=== PATIENT | male | born 1955 | race Hispanic/Latino ===

== ENCOUNTER 2020-04-15 06:58 | Emergency (ER) | payer MEDICARE ==
[2020-04-15 07:33] LABS: BASOPHILS % (AUTO) 0.4 % (0.0-5.0); EOSINOPHILS % (AUTO) 2.3 % (0.0-8.0); HEMATOCRIT 52.4 % (42-54); LYMPHOCYTES % (AUTO) 18.8 % (21.0-51.0); MEAN CORPUSCULAR HGB CONC 34.7 g/dL (32.0-36.0); MEAN CORPUSCULAR VOLUME 97.8 fL (79-99); MONOCYTES % (AUTO) 6.7 % (3.0-13.0); NEUTROPHILS % (AUTO) 71.5 % (40.0-77.0); PLATELET COUNT (AUTO) 174 K/uL (130-400); RED BLOOD CELL COUNT(AUTO) 5.36 MIL/uL (4.50-6.20); RED CELL DISTRIBUTION WIDTH 11.8 % (11.0-15.5); WHITE BLOOD COUNT (AUTO) 10.1 K/uL (4.8-10.8)
[2020-04-15 07:36] LABS: POTASSIUM 4.4 mmol/L (3.5-5.1)
[2020-04-15 07:42] LABS: ALBUMIN 4.5 g/dL (3.5-5.0); BILIRUBIN,TOTAL 0.9 mg/dL (0.2-1.0)
[2020-04-15] MEDS ORDERED: ORPHENADRINE CITRATE 30 MG/ML ML ONE (07:42)
[2020-04-15] MEDS ORDERED: KETOROLAC TROMETHAMINE 30MG/ML ONE (07:42)
[2020-04-15 07:58] LABS: APPEARANCE,URINE Clear (CLEAR); BILIRUBIN,URINE Negative (NEGATIVE); COLOR,URINE Yellow (YELLOW); GLUCOSE, URINE (UA) Negative (NEGATIVE); KETONES,URINE Negative (NEGATIVE); LEUKOCYTE ESTERASE ,URINE Negative (NEGATIVE); NITRATE,URINE Negative (NEGATIVE); OCCULT BLOOD,URINE Negative (NEGATIVE); PH,URINE 5.5 (5.0-8.0); PROTEIN,URINE Negative (NEGATIVE)
[2020-04-15] MEDS ORDERED: DEXAMETHASONE SOD PHOSPHATE 4 MG/ML 1ML VIAL ONE (10:42)
== END 2020-04-15 11:12 | disposition home or self-care (01) ==
LOC: EDH 06:58
DX: M54.32 Sciatica, left side (principal); I10 Essential (primary) hypertension
CPT/HCPCS: 36415; 72100; 80053; 81003; 85025; 96374; 96375; 99284; J1100; J1885; J2360

== ENCOUNTER 2023-01-15 19:31 | Inpatient (IN) | payer OTHER ==
[~2023-01-15] VITALS: Ht 167.6 cm; Wt 100.3 kg
[~2023-01-15 19:31] MED LIST: ETOMIDATE 20MG VIAL IVP ONE; ROCURONIUM BROMIDE 10MG/1ML 5ML VL IV ONE; SUCCINYLCHOLINE CHLORIDE 20 MG/ML 10 ML VIAL IVP ONE
[2023-01-15] MEDS ORDERED: IPRATROPIUM 0.5 MG/2.5 ML INH IH ONE ×2 (19:38→23:01)
[2023-01-15] MEDS ORDERED: ALBUTEROL 0.042% 1.25MG/3ML IH ONE ×2 (19:38→23:01)
[2023-01-15] MEDS ORDERED: SOLU-MEDROL 125MG VIAL ONE (19:39)
[2023-01-15 20:01] LABS: BASOPHILS % (AUTO) 0.3 % (0.0-5.0); EOSINOPHILS % (AUTO) 0.6 % (0.0-8.0); HEMATOCRIT 53.6 % (42-54); LYMPHOCYTES % (AUTO) 10.6 % (21.0-51.0); MEAN CORPUSCULAR HEMOGLOBIN 33.4 pg (27.0-33.0); MEAN CORPUSCULAR HGB CONC 33.6 g/dL (32.0-36.0); MEAN CORPUSCULAR VOLUME 99.4 fL (79-99); MONOCYTES % (AUTO) 6.1 % (3.0-13.0); NEUTROPHILS % (AUTO) 82.1 % (40.0-77.0); PLATELET COUNT (AUTO) 233 K/uL (130-400); RED BLOOD CELL COUNT(AUTO) 5.39 MIL/uL (4.50-6.20); RED CELL DISTRIBUTION WIDTH 12.7 % (11.0-15.5); WHITE BLOOD COUNT (AUTO) 20.9 K/uL (4.8-10.8)
[2023-01-15 20:04] LABS: ABG BASE EXCESS -3.6 mmol/L (-2.0-3.0); ABG HCO3 21.8 mmol/L (21.0-28.0); ABG OXYGEN SATURATION 98.8 % (95.0-99.0); ABG PCO2 41 mmHg (35-48)
[2023-01-15] MEDS ORDERED: PROPOFOL 1000 MG/100 ML 100 ML IV ONE ×2 (20:08→23:04)
[2023-01-15 20:17] LABS: CREATININE 1.2 mg/dL (0.5-1.5); POTASSIUM 4.3 mmol/L (3.5-5.1)
[2023-01-15 20:30] LABS: ALBUMIN 4.3 g/dL (3.5-5.0); MAGNESIUM 1.8 mg/dL (1.80-2.40); TOTAL PROTEIN, SERUM 7.9 g/dL (6.0-8.3)
[2023-01-15] MEDS ORDERED: ONDANSETRON 4MG INJ IVP ONE (20:30)
[2023-01-15] MEDS ORDERED: ZOSYN 3.375GM+NS 50ML 50 ML IVPB ONE (20:46)
[2023-01-15] MEDS ORDERED: LABETALOL 20MG VIAL IV ONE (21:00)
[2023-01-15] MEDS ORDERED: ZOSYN 3.375GM +NS 50ML IVPB ONE (21:00)
[2023-01-15 21:08] LABS: ABG BASE EXCESS -8.9 mmol/L (-2.0-3.0); ABG HCO3 21.2 mmol/L (21.0-28.0); ABG OXYGEN SATURATION 98.9 % (95.0-99.0); ABG PCO2 61 mmHg (35-48)
[2023-01-15 21:16] LABS: INR 1.11 (0.85-1.15)
[2023-01-15 21:17] LABS: PARTIAL THROMBOPLASTIN TIME 28.7 SEC (26.3-35.5)
[2023-01-15] MEDS ORDERED: NITROGLYCERIN 50MG/D5W 250ML 0 BOT ONE (21:17)
[2023-01-15] MEDS ORDERED: VANCOMYCIN PROTOCOL PER PHARMACY IV PRN (21:30)
[2023-01-15] MEDS ORDERED: SOLU-MEDROL 40MG VIAL IVP SCH (21:30)
[2023-01-15] MEDS ORDERED: ONDANSETRON 4MG INJ IV PRN (21:30)
[2023-01-15] MEDS ORDERED: FENTANYL 2500MCG+NS 250ML 250 ML IV ONE (21:34)
[2023-01-15] MEDS ORDERED: FUROSEMIDE 40MG VIAL IV ONE (22:00)
[2023-01-15] MEDS ORDERED: PHARMACY COMMUNICATION MISC SCH (22:00)
[2023-01-15] MEDS ORDERED: LABETALOL 20MG SYG IV PRN (22:00)
[2023-01-15 22:23] LABS: ABG BASE EXCESS -6.3 mmol/L (-2.0-3.0); ABG OXYGEN SATURATION 97.6 % (95.0-99.0); ABG PCO2 62 mmHg (35-48)
[2023-01-15 22:30] LABS: AMPHET/METH SCREEN,URINE NEGATIVE (NEGATIVE); BARBITURATE SCREEN, URINE NEGATIVE (NEGATIVE); BENZODIAZEPINES SCREEN,URINE NEGATIVE (NEGATIVE); CANNABINOID SCREEN,URINE NEGATIVE (NEGATIVE); COCAINE SCREEN,URINE NEGATIVE (NEGATIVE); OPIATE SCREEN,URINE NEGATIVE (NEGATIVE); PHENCYCLIDINE SCREEN,URINE NEGATIVE (NEGATIVE)
[2023-01-15] MEDS ORDERED: ACETAMINOPHEN 650 MG SUPPOSITORY RC ONE (22:35)
[2023-01-15] MEDS: DEXAMETHASONE SOD PHOSPHATE 4 MG/ML 1ML VIAL IVP SCH (23:15)
[2023-01-16] VITALS (60 sets, daily range): BP systolic 88–132; BP diastolic 40–73
[2023-01-16] MEDS ORDERED: IPRATROPIUM/ALBUTEROL SULFATE 3 ML SOLUTION IH SCH
[2023-01-16] MEDS ORDERED: PHENYLEPHRINE HCL 10 MG/ML 1ML VIAL IV ONE (03:42)
[2023-01-16] MEDS ORDERED: MIDAZOLAM 100MG-0.9% NS 100ML 100ML BAG IV ONE (04:00)
[2023-01-16] MEDS ORDERED: PHENYLEPHRINE HCL 10 MG in 0.9% NACL 250ML 250 ML IV PRN (04:00)
[2023-01-16 04:07] LABS: BASOPHILS % (AUTO) 0.1 % (0.0-5.0); HEMATOCRIT 52.2 % (42-54); LYMPHOCYTES % (AUTO) 3.5 % (21.0-51.0); MEAN CORPUSCULAR HEMOGLOBIN 33.4 pg (27.0-33.0); MEAN CORPUSCULAR HGB CONC 32.6 g/dL (32.0-36.0); MEAN CORPUSCULAR VOLUME 102.6 fL (79-99); MONOCYTES % (AUTO) 2.4 % (3.0-13.0); NEUTROPHILS % (AUTO) 93.3 % (40.0-77.0); PLATELET COUNT (AUTO) 170 K/uL (130-400); RED BLOOD CELL COUNT(AUTO) 5.09 MIL/uL (4.50-6.20); RED CELL DISTRIBUTION WIDTH 12.6 % (11.0-15.5); WHITE BLOOD COUNT (AUTO) 15.8 K/uL (4.8-10.8)
[2023-01-16] MEDS: ZOSYN 3.375GM+NS 50ML 50 ML IVPB SCH ×3 (04:34→21:09)
[2023-01-16 04:35] LABS: POTASSIUM 5.1 mmol/L (3.5-5.1); TOTAL PROTEIN, SERUM 7.6 g/dL (6.0-8.3)
[2023-01-16] MEDS ORDERED: PHARMACY COMMUNICATION**REMDESIVIR MISC SCH (05:30)
[2023-01-16] MEDS ORDERED: HEPARIN 25,000 UNITS/250ML D5W 250 ML IV ONE (06:29)
[2023-01-16] MEDS ORDERED: ALBUTEROL 0.042% 1.25MG/3ML IH ONE ×8 (06:39→23:10)
[2023-01-16] MEDS: INSULIN HUMULIN R 100 UNIT/ML 3ML SQ SCH ×5 (06:41→23:47)
[2023-01-16] MEDS: HEPARIN 25,000 UNITS/250ML D5W 250 ML IV SCH ×2 (07:24→22:02)
[2023-01-16] MEDS ORDERED: HEPARIN 5,000 UNIT VIAL IV SCH (07:30)
[2023-01-16 08:15] LABS: ABG BASE EXCESS -3.3 mmol/L (-2.0-3.0); ABG HCO3 23.3 mmol/L (21.0-28.0); ABG OXYGEN SATURATION 95.1 % (95.0-99.0); ABG PCO2 47 mmHg (35-48)
[2023-01-16] MEDS: FUROSEMIDE 20MG VIAL IV SCH ×2 (08:18→21:09)
[2023-01-16] MEDS: ASPIRIN 325MG TAB PO SCH (08:18)
[2023-01-16] MEDS: FAMOTIDINE 20MG VIAL IV SCH ×2 (08:18→21:09)
[2023-01-16] MEDS: VANCOMYCIN 1.25 GM/250 ML BAG 250 ML IV SCH (08:28)
[2023-01-16] MEDS: DEXAMETHASONE SOD PHOSPHATE 4 MG/ML 1ML VIAL IVP SCH ×2 (10:12→22:20)
[2023-01-16] MEDS ORDERED: LISI10TA24 PO (10:12)
[2023-01-16] MEDS: NOREPINEPHRIN 4MG/NS 250ML 250 ML IV SCH ×2 (10:13→21:21)
[2023-01-16] MEDS ORDERED: IPRATROPIUM 0.5 MG/2.5 ML INH IH ONE (10:51)
[2023-01-16] MEDS: ALBUTEROL 0.083% 2.5 MG/3 ML INH IH SCH (11:18)
[2023-01-16] MEDS: IPRATROPIUM 0.5 MG/2.5 ML INH IH SCH ×3 (12:23→23:53)
[2023-01-16] MEDS: FENTANYL 2500MCG+NS 250ML IV.SOLN IV SCH (14:52)
[2023-01-16] MEDS: MIDAZOLAM 100MG-0.9% NS 100ML 100 ML IV SCH (15:13)
[2023-01-16] MEDS ORDERED: CLOPIDOGREL 300MG TAB PO SCH (15:30)
[2023-01-16] MEDS: ATORVASTATIN 40 MG TABLET PO SCH (21:09)
[2023-01-17] VITALS (55 sets, daily range): BP systolic 96–137; BP diastolic 49–79
[2023-01-17] MEDS: MIDAZOLAM 100MG-0.9% NS 100ML 100 ML IV SCH ×2 (03:19→17:49)
[2023-01-17] MEDS: FENTANYL 2500MCG+NS 250ML IV.SOLN IV SCH (03:20)
[2023-01-17 03:37] LABS: BASOPHILS % (AUTO) 0.2 % (0.0-5.0); HEMATOCRIT 47.3 % (42-54); LYMPHOCYTES % (AUTO) 3.3 % (21.0-51.0); MEAN CORPUSCULAR HEMOGLOBIN 33.7 pg (27.0-33.0); MEAN CORPUSCULAR HGB CONC 33.6 g/dL (32.0-36.0); MEAN CORPUSCULAR VOLUME 100.2 fL (79-99); MONOCYTES % (AUTO) 6.1 % (3.0-13.0); NEUTROPHILS % (AUTO) 89.9 % (40.0-77.0); PLATELET COUNT (AUTO) 182 K/uL (130-400); RED BLOOD CELL COUNT(AUTO) 4.72 MIL/uL (4.50-6.20); RED CELL DISTRIBUTION WIDTH 12.4 % (11.0-15.5); WHITE BLOOD COUNT (AUTO) 17.9 K/uL (4.8-10.8)
[2023-01-17 03:51] LABS: ABG HCO3 24.6 mmol/L (21.0-28.0); ABG OXYGEN SATURATION 93.8 % (95.0-99.0); ABG PCO2 54 mmHg (35-48)
[2023-01-17 03:56] LABS: INR 1.07 (0.85-1.15); PROTHROMBIN TIME 11.6 SEC (9.6-11.6)
[2023-01-17 03:57] LABS: PARTIAL THROMBOPLASTIN TIME 54.2 SEC (26.3-35.5)
[2023-01-17 04:02] LABS: POTASSIUM 4.6 mmol/L (3.5-5.1)
[2023-01-17] MEDS: ZOSYN 3.375GM+NS 50ML 50 ML IVPB SCH ×3 (04:48→21:37)
[2023-01-17] MEDS: INSULIN HUMULIN R 100 UNIT/ML 3ML SQ SCH ×4 (05:24→23:53)
[2023-01-17] MEDS: ALBUTEROL 0.083% 2.5 MG/3 ML INH IH SCH ×4 (06:55→18:42)
[2023-01-17] MEDS: IPRATROPIUM 0.5 MG/2.5 ML INH IH SCH ×5 (06:55→23:31)
[2023-01-17] MEDS ORDERED: DEXMEDETOMIDINE 400MCG/NS100ML IV SCH (08:30)
[2023-01-17] MEDS: FAMOTIDINE 20MG VIAL IV SCH ×2 (08:53→21:37)
[2023-01-17] MEDS: ASPIRIN 325MG TAB PO SCH (08:53)
[2023-01-17] MEDS: CLOPIDOGREL 75MG TAB PO SCH (08:53)
[2023-01-17] MEDS: FUROSEMIDE 20MG VIAL IV SCH ×2 (09:10→21:37)
[2023-01-17] MEDS: VANCOMYCIN 1.25 GM/250 ML BAG 250 ML IV SCH (09:10)
[2023-01-17] MEDS: DEXAMETHASONE SOD PHOSPHATE 4 MG/ML 1ML VIAL IVP SCH ×2 (12:27→23:30)
[2023-01-17] MEDS ORDERED: ROCURONIUM BROMIDE 10MG/1ML 5ML VL ONE (15:03)
[2023-01-17 15:25] LABS: ABG BASE EXCESS -2.6 mmol/L (-2.0-3.0); ABG HCO3 26.2 mmol/L (21.0-28.0); ABG OXYGEN SATURATION 96.3 % (95.0-99.0); ABG PCO2 63 mmHg (35-48)
[2023-01-17] MEDS: ATORVASTATIN 40 MG TABLET PO SCH (21:38)
[2023-01-17] MEDS ORDERED: MAGNESIUM 2GM PREMIX 50ML 50 ML IV PRN (22:30)
[2023-01-17 23:03] LABS: MAGNESIUM 2.6 mg/dL (1.80-2.40); POTASSIUM 4.7 mmol/L (3.5-5.1)
[2023-01-18] VITALS (45 sets, daily range): BP systolic 91–125; BP diastolic 39–65
[2023-01-18] MEDS: FENTANYL 2500MCG+NS 250ML IV.SOLN IV SCH ×3 (00:29→17:46)
[2023-01-18] MEDS: MIDAZOLAM 100MG-0.9% NS 100ML 100 ML IV SCH ×3 (03:20→23:11)
[2023-01-18 03:43] LABS: ABG BASE EXCESS -0.8 mmol/L (-2.0-3.0); ABG HCO3 27.4 mmol/L (21.0-28.0); ABG OXYGEN SATURATION 92.6 % (95.0-99.0); ABG PCO2 60 mmHg (35-48)
[2023-01-18 04:19] LABS: INR 1.06 (0.85-1.15); PROTHROMBIN TIME 11.5 SEC (9.6-11.6)
[2023-01-18 04:20] LABS: PARTIAL THROMBOPLASTIN TIME 86.5 SEC (26.3-35.5)
[2023-01-18] MEDS: INSULIN HUMULIN R 100 UNIT/ML 3ML SQ SCH ×4 (04:49→23:30)
[2023-01-18] MEDS: ZOSYN 3.375GM+NS 50ML 50 ML IVPB SCH ×3 (04:54→21:55)
[2023-01-18 05:14] LABS: ALBUMIN 3.2 g/dL (3.5-5.0); CREATININE 1.9 mg/dL (0.5-1.5); MAGNESIUM 2.7 mg/dL (1.80-2.40); POTASSIUM 4.7 mmol/L (3.5-5.1); TOTAL PROTEIN, SERUM 6.5 g/dL (6.0-8.3)
[2023-01-18] MEDS ORDERED: LACTATED RINGERS 1000ML 1,000 ML IV SCH (07:00)
[2023-01-18] MEDS: IPRATROPIUM 0.5 MG/2.5 ML INH IH SCH ×4 (07:06→23:16)
[2023-01-18] MEDS: ALBUTEROL 0.083% 2.5 MG/3 ML INH IH SCH ×4 (07:06→23:16)
[2023-01-18] MEDS: FAMOTIDINE 20MG VIAL IV SCH ×2 (08:07→21:55)
[2023-01-18] MEDS: CLOPIDOGREL 75MG TAB PO SCH (08:07)
[2023-01-18] MEDS: ASPIRIN 325MG TAB PO SCH (08:07)
[2023-01-18] MEDS: FUROSEMIDE 20MG VIAL IV SCH ×2 (08:07→21:54)
[2023-01-18 08:16] LABS: BASOPHILS % (AUTO) 0.1 % (0.0-5.0); HEMATOCRIT 43.5 % (42-54); LYMPHOCYTES % (AUTO) 5.4 % (21.0-51.0); MEAN CORPUSCULAR HEMOGLOBIN 34.3 pg (27.0-33.0); MEAN CORPUSCULAR HGB CONC 34.3 g/dL (32.0-36.0); MEAN CORPUSCULAR VOLUME 100.2 fL (79-99); NEUTROPHILS % (AUTO) 86.9 % (40.0-77.0); PLATELET COUNT (AUTO) 348 K/uL (130-400); RED BLOOD CELL COUNT(AUTO) 4.34 MIL/uL (4.50-6.20); WHITE BLOOD COUNT (AUTO) 13.4 K/uL (4.8-10.8)
[2023-01-18 08:20] LABS: ABG BASE EXCESS -2.3 mmol/L (-2.0-3.0); ABG HCO3 25.1 mmol/L (21.0-28.0); ABG OXYGEN SATURATION 96.8 % (95.0-99.0); ABG PCO2 54 mmHg (35-48)
[2023-01-18] MEDS: DEXAMETHASONE SOD PHOSPHATE 4 MG/ML 1ML VIAL IVP SCH ×2 (10:09→21:56)
[2023-01-18] MEDS: VANCOMYCIN 1.25 GM/250 ML BAG 250 ML IV SCH (10:09)
[2023-01-18] MEDS: HEPARIN 25,000 UNITS/250ML D5W 250 ML IV SCH (10:25)
[2023-01-18] MEDS ORDERED: PHARMACY COMMUNICATION MISC SCH (13:00)
[2023-01-18] MEDS: ATORVASTATIN 40 MG TABLET PO SCH (21:55)
[2023-01-19] VITALS (39 sets, daily range): BP systolic 91–147; BP diastolic 32–68
[2023-01-19] MEDS: FENTANYL 2500MCG+NS 250ML IV.SOLN IV SCH ×3 (00:29→14:46)
[2023-01-19 04:04] LABS: ABG BASE EXCESS -0.2 mmol/L (-2.0-3.0); ABG HCO3 25.8 mmol/L (21.0-28.0); ABG OXYGEN SATURATION 97.3 % (95.0-99.0); ABG PCO2 47 mmHg (35-48)
[2023-01-19 04:29] LABS: BASOPHILS % (AUTO) 0.1 % (0.0-5.0); HEMATOCRIT 46.5 % (42-54); LYMPHOCYTES % (AUTO) 5.2 % (21.0-51.0); MEAN CORPUSCULAR HEMOGLOBIN 32.7 pg (27.0-33.0); MEAN CORPUSCULAR HGB CONC 31.8 g/dL (32.0-36.0); MEAN CORPUSCULAR VOLUME 102.9 fL (79-99); MONOCYTES % (AUTO) 6.4 % (3.0-13.0); NEUTROPHILS % (AUTO) 87.7 % (40.0-77.0); PLATELET COUNT (AUTO) 169 K/uL (130-400); RED BLOOD CELL COUNT(AUTO) 4.52 MIL/uL (4.50-6.20); RED CELL DISTRIBUTION WIDTH 12.3 % (11.0-15.5); WHITE BLOOD COUNT (AUTO) 9.7 K/uL (4.8-10.8)
[2023-01-19 04:44] LABS: CREATININE 1.6 mg/dL (0.5-1.5); POTASSIUM 4.3 mmol/L (3.5-5.1)
[2023-01-19] MEDS: ZOSYN 3.375GM+NS 50ML 50 ML IVPB SCH ×3 (05:39→20:18)
[2023-01-19] MEDS: INSULIN HUMULIN R 100 UNIT/ML 3ML SQ SCH ×4 (06:00→23:26)
[2023-01-19] MEDS: ALBUTEROL 0.083% 2.5 MG/3 ML INH IH SCH ×3 (06:29→18:00)
[2023-01-19] MEDS: IPRATROPIUM 0.5 MG/2.5 ML INH IH SCH ×4 (06:29→23:14)
[2023-01-19] MEDS: MIDAZOLAM 100MG-0.9% NS 100ML 100 ML IV SCH (07:28)
[2023-01-19] MEDS: NOREPINEPHRIN 4MG/NS 250ML 250 ML IV SCH (07:30)
[2023-01-19] MEDS: FAMOTIDINE 20MG VIAL IV SCH ×2 (08:55→20:18)
[2023-01-19] MEDS: VANCOMYCIN 1.25 GM/250 ML BAG 250 ML IV SCH (08:55)
[2023-01-19] MEDS: FUROSEMIDE 20MG VIAL IV SCH ×2 (08:55→20:20)
[2023-01-19] MEDS: ASPIRIN 325MG TAB PO SCH (08:56)
[2023-01-19] MEDS: CLOPIDOGREL 75MG TAB PO SCH (08:56)
[2023-01-19] MEDS: METOCLOPRAMIDE 10 MG/2 ML VIAL IVP SCH ×2 (12:00→17:28)
[2023-01-19] MEDS: DEXAMETHASONE SOD PHOSPHATE 4 MG/ML 1ML VIAL IVP SCH ×2 (12:01→23:25)
[2023-01-19] MEDS ORDERED: DEXMEDETOMIDINE 400MCG/NS100ML IV SCH (17:00)
[2023-01-19] MEDS ORDERED: METOCLOPRAMIDE 10 MG/2 ML VIAL ONE (17:26)
[2023-01-19] MEDS ORDERED: PROPOFOL 1000 MG/100 ML 100 ML IV ONE (17:27)
[2023-01-19] MEDS ORDERED: PROPOFOL 1000 MG/100 ML IV PRN (17:30)
[2023-01-19] MEDS: PROPOFOL 1000 MG/100 ML 100 ML IV SCH (17:35)
[2023-01-19] MEDS ORDERED: ALBUTEROL 0.042% 1.25MG/3ML IH ONE ×4 (18:20→22:15)
[2023-01-19] MEDS ORDERED: ENOXAPARIN SODIUM 30 MG/0.3 ML SQ ONE (20:09)
[2023-01-19] MEDS ORDERED: FUROSEMIDE 20MG VIAL ONE (20:09)
[2023-01-19] MEDS ORDERED: ZOSYN 3.375GM+NS 50ML 50 ML IVPB ONE (20:09)
[2023-01-19] MEDS ORDERED: ATORVASTATIN 40 MG TABLET ONE (20:09)
[2023-01-19] MEDS ORDERED: FAMOTIDINE 20MG VIAL IV ONE (20:10)
[2023-01-19] MEDS: ENOXAPARIN SODIUM 30 MG/0.3 ML SQ SCH (20:18)
[2023-01-19] MEDS: ATORVASTATIN 40 MG TABLET PO SCH (20:19)
[2023-01-19] MEDS ORDERED: DEXAMETHASONE SOD PHOSPHATE 4 MG/ML 1ML VIAL ONE ×2 (23:21→23:23)
[2023-01-20] VITALS (81 sets, daily range): BP systolic 95–173; BP diastolic 31–97
[2023-01-20] MEDS ORDERED: PROPOFOL 1000 MG/100 ML 100 ML IV ONE (00:32)
[2023-01-20] MEDS: PROPOFOL 1000 MG/100 ML 100 ML IV SCH ×4 (00:35→22:27)
[2023-01-20 03:15] LABS: ABG BASE EXCESS 2.2 mmol/L (-2.0-3.0); ABG HCO3 28.1 mmol/L (21.0-28.0); ABG OXYGEN SATURATION 94.9 % (95.0-99.0); ABG PCO2 48 mmHg (35-48)
[2023-01-20 03:43] LABS: BASOPHILS % (AUTO) 0.1 % (0.0-5.0); HEMATOCRIT 48.4 % (42-54); LYMPHOCYTES % (AUTO) 7.2 % (21.0-51.0); MEAN CORPUSCULAR HEMOGLOBIN 33.3 pg (27.0-33.0); MEAN CORPUSCULAR HGB CONC 32.9 g/dL (32.0-36.0); MEAN CORPUSCULAR VOLUME 101.5 fL (79-99); MONOCYTES % (AUTO) 5.3 % (3.0-13.0); NEUTROPHILS % (AUTO) 86.7 % (40.0-77.0); PLATELET COUNT (AUTO) 161 K/uL (130-400); RED BLOOD CELL COUNT(AUTO) 4.77 MIL/uL (4.50-6.20); RED CELL DISTRIBUTION WIDTH 12.2 % (11.0-15.5); WHITE BLOOD COUNT (AUTO) 8.8 K/uL (4.8-10.8)
[2023-01-20 03:56] LABS: ALBUMIN 3.2 g/dL (3.5-5.0); CREATININE 1.5 mg/dL (0.5-1.5); POTASSIUM 4.2 mmol/L (3.5-5.1); TOTAL PROTEIN, SERUM 6.5 g/dL (6.0-8.3)
[2023-01-20] MEDS ORDERED: ZOSYN 3.375GM+NS 50ML 50 ML IVPB ONE (04:06)
[2023-01-20] MEDS: ZOSYN 3.375GM+NS 50ML 50 ML IVPB SCH ×3 (04:12→20:30)
[2023-01-20] MEDS: INSULIN HUMULIN R 100 UNIT/ML 3ML SQ SCH ×4 (05:41→23:59)
[2023-01-20] MEDS ORDERED: METOCLOPRAMIDE 10 MG/2 ML VIAL ONE (06:08)
[2023-01-20] MEDS ORDERED: FENTANYL 2500MCG+NS 250ML 250 ML IV ONE (06:08)
[2023-01-20] MEDS: METOCLOPRAMIDE 10 MG/2 ML VIAL IVP SCH ×3 (06:09→17:32)
[2023-01-20] MEDS: FENTANYL 2500MCG+NS 250ML IV.SOLN IV SCH (06:11)
[2023-01-20] MEDS: IPRATROPIUM 0.5 MG/2.5 ML INH IH SCH ×3 (06:34→19:12)
[2023-01-20] MEDS: ALBUTEROL 0.083% 2.5 MG/3 ML INH IH SCH ×3 (06:35→11:54)
[2023-01-20] MEDS: CLOPIDOGREL 75MG TAB PO SCH (07:43)
[2023-01-20] MEDS: ASPIRIN 325MG TAB PO SCH (07:43)
[2023-01-20] MEDS: FUROSEMIDE 20MG VIAL IV SCH ×2 (07:44→20:30)
[2023-01-20] MEDS: FAMOTIDINE 20MG VIAL IV SCH ×2 (07:44→20:30)
[2023-01-20] MEDS: VANCOMYCIN 1.25 GM/250 ML BAG 250 ML IV SCH (07:45)
[2023-01-20] MEDS ORDERED: NICOTINE 14 MG/ 24 HR PATCH TD SCH (09:00)
[2023-01-20] MEDS ORDERED: DEXMEDETOMIDINE HCL 400 MCG in 0.9%NACL 100ML 100 ML IV SCH (09:43)
[2023-01-20] MEDS: AZITHROMYCIN 500MG+NS 250ML IVPB SCH (09:46)
[2023-01-20] MEDS: DEXAMETHASONE SOD PHOSPHATE 4 MG/ML 1ML VIAL IVP SCH ×2 (09:46→22:19)
[2023-01-20] MEDS ORDERED: DEXMEDETOMIDINE 400MCG/NS100ML IV ONE ×2 (10:09→15:56)
[2023-01-20 10:51] LABS: APPEARANCE,URINE CLEAR (CLEAR); BILIRUBIN,URINE NEGATIVE (NEGATIVE); COLOR,URINE LIGHT-YELLOW (YELLOW); GLUCOSE, URINE (UA) NEGATIVE (NEGATIVE); KETONES,URINE NEGATIVE (NEGATIVE); LEUKOCYTE ESTERASE ,URINE NEGATIVE Leu/uL (NEGATIVE); NITRATE,URINE NEGATIVE (NEGATIVE); OCCULT BLOOD,URINE LARGE (NEGATIVE); PROTEIN,URINE NEGATIVE (NEGATIVE); UROBILINOGEN,URINE 0.2 mg/dL (0.2-1.0)
[2023-01-20 11:42] LABS: BACTERIA,URINE RARE /HPF (None Seen); MUCUS,URINE RARE LPF (None Seen); RBC,URINE 51-100 /HPF (0-1); SQUAMOUS EPITHELIAL CELL,UR RARE /HPF (0-2); WBC,URINE 0-1 /HPF (0-1)
[2023-01-20] MEDS: CHLORHEXIDINE GLUCONATE 473 ML MOUTHWASH MM SCH ×2 (14:30→20:42)
[2023-01-20] MEDS: BUDESONIDE 0.5 MG/2 ML INH IH SCH (19:12)
[2023-01-20] MEDS: ATORVASTATIN 40 MG TABLET PO SCH (20:30)
[2023-01-20] MEDS: ENOXAPARIN SODIUM 30 MG/0.3 ML SQ SCH (20:34)
[2023-01-20] MEDS: ARTIFICIAL TEARS 3.5 GM OINTMENT OS SCH (20:42)
[2023-01-20] MEDS: DEXMEDETOMIDINE 400MCG/NS100ML IV SCH (22:33)
[2023-01-21] VITALS (78 sets, daily range): BP systolic 80–183; BP diastolic 46–91
[2023-01-21] MEDS: IPRATROPIUM 0.5 MG/2.5 ML INH IH SCH ×5 (00:03→23:30)
[2023-01-21] MEDS: ALBUTEROL 0.083% 2.5 MG/3 ML INH IH SCH ×6 (00:18→23:30)
[2023-01-21] MEDS: CHLORHEXIDINE GLUCONATE 473 ML MOUTHWASH MM SCH ×4 (02:41→20:10)
[2023-01-21 03:46] LABS: BASOPHILS % (AUTO) 0.2 % (0.0-5.0); HEMATOCRIT 50.2 % (42-54); LYMPHOCYTES % (AUTO) 4.5 % (21.0-51.0); MEAN CORPUSCULAR HEMOGLOBIN 33.1 pg (27.0-33.0); MEAN CORPUSCULAR HGB CONC 32.9 g/dL (32.0-36.0); MEAN CORPUSCULAR VOLUME 100.6 fL (79-99); MONOCYTES % (AUTO) 9.5 % (3.0-13.0); PLATELET COUNT (AUTO) 167 K/uL (130-400); RED BLOOD CELL COUNT(AUTO) 4.99 MIL/uL (4.50-6.20); WHITE BLOOD COUNT (AUTO) 9.9 K/uL (4.8-10.8)
[2023-01-21 04:09] LABS: ALBUMIN 3.2 g/dL (3.5-5.0); CREATININE 1.4 mg/dL (0.5-1.5); TOTAL PROTEIN, SERUM 6.5 g/dL (6.0-8.3)
[2023-01-21] MEDS: ZOSYN 3.375GM+NS 50ML 50 ML IVPB SCH ×3 (04:24→20:10)
[2023-01-21] MEDS: PROPOFOL 1000 MG/100 ML 100 ML IV SCH ×3 (04:25→20:18)
[2023-01-21] MEDS: DEXMEDETOMIDINE 400MCG/NS100ML IV SCH ×6 (04:25→23:31)
[2023-01-21] MEDS: INSULIN HUMULIN R 100 UNIT/ML 3ML SQ SCH ×4 (05:09→23:35)
[2023-01-21] MEDS: BUDESONIDE 0.5 MG/2 ML INH IH SCH ×2 (06:55→18:58)
[2023-01-21] MEDS: AZITHROMYCIN 500MG+NS 250ML IVPB SCH (08:24)
[2023-01-21] MEDS: NICOTINE 21 MG/ 24 HR PATCH TD SCH (08:25)
[2023-01-21] MEDS: FAMOTIDINE 20MG VIAL IV SCH ×2 (08:26→20:09)
[2023-01-21] MEDS: CLOPIDOGREL 75MG TAB PO SCH (08:26)
[2023-01-21] MEDS: METOCLOPRAMIDE 10 MG/2 ML VIAL IVP SCH ×3 (08:26→16:41)
[2023-01-21] MEDS: ASPIRIN 325MG TAB PO SCH (08:28)
[2023-01-21] MEDS: FUROSEMIDE 20MG VIAL IV SCH ×2 (08:28→20:09)
[2023-01-21] MEDS: DEXAMETHASONE SOD PHOSPHATE 4 MG/ML 1ML VIAL IVP SCH ×2 (10:15→23:09)
[2023-01-21] MEDS ORDERED: VANCOMYCIN 1.25 GM/250 ML BAG 250 ML IV SCH (10:38)
[2023-01-21] MEDS: ATORVASTATIN 40 MG TABLET PO SCH (20:10)
[2023-01-21] MEDS: ENOXAPARIN SODIUM 30 MG/0.3 ML SQ SCH (20:10)
[2023-01-21] MEDS: ARTIFICIAL TEARS 3.5 GM OINTMENT OS SCH (20:10)
[2023-01-22] VITALS (88 sets, daily range): BP systolic 83–123; BP diastolic 46–70
[2023-01-22] MEDS ORDERED: ACETAMINOPHEN 325 MG TAB PO PRN
[2023-01-22] MEDS: ACETAMINOPHEN 650 MG/20.3 ML UDCUP PEG PRN ×4 (00:19→18:28)
[2023-01-22] MEDS: PROPOFOL 1000 MG/100 ML 100 ML IV SCH ×6 (00:20→20:20)
[2023-01-22] MEDS: DEXMEDETOMIDINE 400MCG/NS100ML IV SCH ×5 (03:45→15:24)
[2023-01-22] MEDS: CHLORHEXIDINE GLUCONATE 473 ML MOUTHWASH MM SCH ×4 (03:48→20:13)
[2023-01-22] MEDS: ZOSYN 3.375GM+NS 50ML 50 ML IVPB SCH ×2 (05:35→11:44)
[2023-01-22] MEDS: INSULIN HUMULIN R 100 UNIT/ML 3ML SQ SCH ×3 (05:39→18:28)
[2023-01-22 06:01] LABS: BASOPHILS % (AUTO) 0.1 % (0.0-5.0); HEMATOCRIT 50.5 % (42-54); LYMPHOCYTES % (AUTO) 5.9 % (21.0-51.0); MEAN CORPUSCULAR HEMOGLOBIN 33.1 pg (27.0-33.0); MEAN CORPUSCULAR HGB CONC 33.3 g/dL (32.0-36.0); MEAN CORPUSCULAR VOLUME 99.6 fL (79-99); NEUTROPHILS % (AUTO) 83.2 % (40.0-77.0); PLATELET COUNT (AUTO) 149 K/uL (130-400); RED BLOOD CELL COUNT(AUTO) 5.07 MIL/uL (4.50-6.20); RED CELL DISTRIBUTION WIDTH 12.4 % (11.0-15.5); WHITE BLOOD COUNT (AUTO) 12.1 K/uL (4.8-10.8)
[2023-01-22 06:13] LABS: ALBUMIN 3.2 g/dL (3.5-5.0); CREATININE 1.8 mg/dL (0.5-1.5); POTASSIUM 4.1 mmol/L (3.5-5.1); TOTAL PROTEIN, SERUM 6.5 g/dL (6.0-8.3)
[2023-01-22] MEDS: IPRATROPIUM 0.5 MG/2.5 ML INH IH SCH ×4 (06:40→23:56)
[2023-01-22] MEDS: ALBUTEROL 0.083% 2.5 MG/3 ML INH IH SCH ×4 (06:41→23:57)
[2023-01-22] MEDS: BUDESONIDE 0.5 MG/2 ML INH IH SCH ×2 (06:41→20:29)
[2023-01-22] MEDS: AZITHROMYCIN 500MG+NS 250ML IVPB SCH (07:40)
[2023-01-22] MEDS: NICOTINE 21 MG/ 24 HR PATCH TD SCH (07:40)
[2023-01-22] MEDS: ASPIRIN 325MG TAB PO SCH (07:42)
[2023-01-22] MEDS: FAMOTIDINE 20MG VIAL IV SCH (07:42)
[2023-01-22] MEDS: CLOPIDOGREL 75MG TAB PO SCH (07:42)
[2023-01-22] MEDS: METOCLOPRAMIDE 10 MG/2 ML VIAL IVP SCH ×3 (07:42→15:53)
[2023-01-22] MEDS: FUROSEMIDE 20MG VIAL IV SCH (07:42)
[2023-01-22] MEDS: MIDAZOLAM 100MG-0.9% NS 100ML 100 ML IV SCH (09:36)
[2023-01-22 10:23] LABS: ABG BASE EXCESS 1.8 mmol/L (-2.0-3.0); ABG HCO3 26.1 mmol/L (21.0-28.0); ABG OXYGEN SATURATION 92.2 % (95.0-99.0); ABG PCO2 40 mmHg (35-48)
[2023-01-22] MEDS: NOREPINEPHRIN 4MG/NS 250ML 250 ML IV SCH (10:45)
[2023-01-22] MEDS: DEXAMETHASONE SOD PHOSPHATE 4 MG/ML 1ML VIAL IVP SCH ×2 (10:46→23:20)
[2023-01-22] MEDS ORDERED: FENTANYL 2500MCG+NS 250ML IV.SOLN IV SCH (15:30)
[2023-01-22] MEDS: FENTANYL 2500MCG+NS 250ML 250 ML IV SCH (15:52)
[2023-01-22] MEDS ORDERED: VANCOMYCIN 1G VIAL IVPB SCH (19:30)
[2023-01-22] MEDS ORDERED: MEROPENEM 1 GM VIAL IVP SCH (19:30)
[2023-01-22] MEDS ORDERED: 0.9%NACL 1000ML 1,275 ML IV ONE (19:30)
[2023-01-22] MEDS ORDERED: VANCOMYCIN PROTOCOL PER PHARMACY IV SCH (19:30)
[2023-01-22] MEDS ORDERED: 0.9% NACL 250ML IV SCH (19:30)
[2023-01-22] MEDS ORDERED: MEROPENEM 1 GM VIAL ONE (20:07)
[2023-01-22] MEDS ORDERED: FAMOTIDINE 20MG VIAL IV ONE (20:07)
[2023-01-22] MEDS: MEROPENEM IVPB SCH (20:12)
[2023-01-22] MEDS: [UNRECOGNIZED DRUG - OTHER] IVPB SCH (20:12)
[2023-01-22] MEDS: ARTIFICIAL TEARS 3.5 GM OINTMENT OS SCH (20:13)
[2023-01-22] MEDS: ATORVASTATIN 40 MG TABLET PO SCH (20:13)
[2023-01-22] MEDS ORDERED: COMPOUND IV REFRIGERATED 1 EACH IVSOLN MISC PRN (20:30)
[2023-01-22] MEDS ORDERED: VANCOMYCIN 1.75 GM/250 ML BAG 250 ML IV ONE (20:30)
[2023-01-23] VITALS (79 sets, daily range): BP systolic 98–177; BP diastolic 28–113
[2023-01-23] MEDS: CHLORHEXIDINE GLUCONATE 473 ML MOUTHWASH MM SCH ×4 (04:07→20:37)
[2023-01-23 05:15] LABS: BASOPHILS % (AUTO) 0.2 % (0.0-5.0); EOSINOPHILS % (AUTO) 0.2 % (0.0-8.0); HEMATOCRIT 48.9 % (42-54); LYMPHOCYTES % (AUTO) 4.4 % (21.0-51.0); MEAN CORPUSCULAR HEMOGLOBIN 33.6 pg (27.0-33.0); MEAN CORPUSCULAR HGB CONC 33.3 g/dL (32.0-36.0); MEAN CORPUSCULAR VOLUME 100.8 fL (79-99); MONOCYTES % (AUTO) 5.9 % (3.0-13.0); NEUTROPHILS % (AUTO) 88.3 % (40.0-77.0); PLATELET COUNT (AUTO) 111 K/uL (130-400); RED BLOOD CELL COUNT(AUTO) 4.85 MIL/uL (4.50-6.20); RED CELL DISTRIBUTION WIDTH 12.4 % (11.0-15.5); WHITE BLOOD COUNT (AUTO) 18.8 K/uL (4.8-10.8)
[2023-01-23 05:28] LABS: ALBUMIN 2.8 g/dL (3.5-5.0); CREATININE 1.3 mg/dL (0.5-1.5); POTASSIUM 3.6 mmol/L (3.5-5.1); TOTAL PROTEIN, SERUM 5.9 g/dL (6.0-8.3)
[2023-01-23] MEDS: FENTANYL 2500MCG+NS 250ML 250 ML IV SCH ×2 (05:48→23:10)
[2023-01-23] MEDS: PROPOFOL 1000 MG/100 ML 100 ML IV SCH ×6 (05:48→21:53)
[2023-01-23] MEDS: INSULIN HUMULIN R 100 UNIT/ML 3ML SQ SCH ×4 (06:04→18:00)
[2023-01-23] MEDS: IPRATROPIUM 0.5 MG/2.5 ML INH IH SCH ×4 (06:21→23:42)
[2023-01-23] MEDS: ALBUTEROL 0.083% 2.5 MG/3 ML INH IH SCH ×4 (06:21→23:42)
[2023-01-23] MEDS: BUDESONIDE 0.5 MG/2 ML INH IH SCH ×2 (06:21→18:51)
[2023-01-23 07:23] LABS: ABG BASE EXCESS 0.2 mmol/L (-2.0-3.0); ABG HCO3 25.5 mmol/L (21.0-28.0); ABG OXYGEN SATURATION 92.8 % (95.0-99.0); ABG PCO2 44 mmHg (35-48)
[2023-01-23] MEDS: DEXAMETHASONE SOD PHOSPHATE 4 MG/ML 1ML VIAL IVP SCH ×2 (09:57→23:08)
[2023-01-23] MEDS: FAMOTIDINE 20MG VIAL IV SCH (09:57)
[2023-01-23] MEDS: CLOPIDOGREL 75MG TAB PO SCH (09:58)
[2023-01-23] MEDS: METOCLOPRAMIDE 10 MG/2 ML VIAL IVP SCH ×3 (09:58→16:39)
[2023-01-23] MEDS: ASPIRIN 325MG TAB PO SCH (09:58)
[2023-01-23] MEDS: VANCOMYCIN 1.25 GM/250 ML BAG 250 ML IV SCH (09:59)
[2023-01-23] MEDS: NICOTINE 21 MG/ 24 HR PATCH TD SCH (09:59)
[2023-01-23] MEDS: [UNRECOGNIZED DRUG - OTHER] IVPB SCH ×2 (10:02→20:37)
[2023-01-23] MEDS: MEROPENEM IVPB SCH ×2 (10:02→20:37)
[2023-01-23] MEDS: 0.9%NACL 1000ML 1,000 ML IV SCH ×2 (10:32→20:57)
[2023-01-23] MEDS ORDERED: IOHEXOL 350 MG/ML 100ML INFUS..BTL IV ONE (11:20)
[2023-01-23] MEDS: ENOXAPARIN SODIUM 100 MG/1 ML SQ SCH ×2 (16:40→20:31)
[2023-01-23] MEDS: CARVEDILOL 3.125 MG TABLET PO SCH (20:33)
[2023-01-23] MEDS: ARTIFICIAL TEARS 3.5 GM OINTMENT OS SCH (20:38)
[2023-01-23] MEDS: ATORVASTATIN 40 MG TABLET PO SCH (20:39)
[2023-01-24] VITALS (41 sets, daily range): BP systolic 74–154; BP diastolic 35–97
[2023-01-24] MEDS: PROPOFOL 1000 MG/100 ML 100 ML IV SCH ×6 (01:33→20:56)
[2023-01-24] MEDS: CHLORHEXIDINE GLUCONATE 473 ML MOUTHWASH MM SCH ×4 (01:37→20:37)
[2023-01-24 04:21] LABS: BASOPHILS % (AUTO) 0.1 % (0.0-5.0); EOSINOPHILS % (AUTO) 1.3 % (0.0-8.0); HEMATOCRIT 43.6 % (42-54); LYMPHOCYTES % (AUTO) 4.3 % (21.0-51.0); MEAN CORPUSCULAR HEMOGLOBIN 33.8 pg (27.0-33.0); MEAN CORPUSCULAR HGB CONC 33.3 g/dL (32.0-36.0); MEAN CORPUSCULAR VOLUME 101.6 fL (79-99); MONOCYTES % (AUTO) 5.9 % (3.0-13.0); NEUTROPHILS % (AUTO) 87.3 % (40.0-77.0); PLATELET COUNT (AUTO) 105 K/uL (130-400); RED BLOOD CELL COUNT(AUTO) 4.29 MIL/uL (4.50-6.20); RED CELL DISTRIBUTION WIDTH 12.3 % (11.0-15.5); WHITE BLOOD COUNT (AUTO) 15.1 K/uL (4.8-10.8)
[2023-01-24 04:44] LABS: ALBUMIN 2.5 g/dL (3.5-5.0); CREATININE 1.2 mg/dL (0.5-1.5); POTASSIUM 4.1 mmol/L (3.5-5.1); TOTAL PROTEIN, SERUM 5.2 g/dL (6.0-8.3)
[2023-01-24 05:15] LABS: ABG BASE EXCESS 1.5 mmol/L (-2.0-3.0); ABG HCO3 26.2 mmol/L (21.0-28.0); ABG OXYGEN SATURATION 96.9 % (95.0-99.0); ABG PCO2 42 mmHg (35-48)
[2023-01-24] MEDS: 0.9%NACL 1000ML 1,000 ML IV SCH ×2 (05:51→08:28)
[2023-01-24] MEDS: INSULIN HUMULIN R 100 UNIT/ML 3ML SQ SCH ×5 (05:51→23:35)
[2023-01-24] MEDS: IPRATROPIUM 0.5 MG/2.5 ML INH IH SCH ×4 (06:43→23:20)
[2023-01-24] MEDS: BUDESONIDE 0.5 MG/2 ML INH IH SCH ×2 (06:43→18:38)
[2023-01-24] MEDS: ALBUTEROL 0.083% 2.5 MG/3 ML INH IH SCH ×4 (06:44→23:20)
[2023-01-24] MEDS: VANCOMYCIN 1.25 GM/250 ML BAG 250 ML IV SCH (08:25)
[2023-01-24] MEDS: CLOPIDOGREL 75MG TAB PO SCH (08:26)
[2023-01-24] MEDS: ASPIRIN 325MG TAB PO SCH (08:26)
[2023-01-24] MEDS: ENOXAPARIN SODIUM 100 MG/1 ML SQ SCH ×2 (08:26→20:34)
[2023-01-24] MEDS: CARVEDILOL 3.125 MG TABLET PO SCH ×2 (08:27→20:59)
[2023-01-24] MEDS: METOCLOPRAMIDE 10 MG/2 ML VIAL IVP SCH ×3 (08:27→17:04)
[2023-01-24] MEDS: FAMOTIDINE 20MG VIAL IV SCH (08:30)
[2023-01-24] MEDS: NICOTINE 21 MG/ 24 HR PATCH TD SCH (08:47)
[2023-01-24] MEDS: MEROPENEM 1 GM VIAL IVP SCH ×2 (09:16→20:35)
[2023-01-24] MEDS: DEXAMETHASONE SOD PHOSPHATE 4 MG/ML 1ML VIAL IVP SCH (11:24)
[2023-01-24] MEDS: FENTANYL 2500MCG+NS 250ML 250 ML IV SCH (13:44)
[2023-01-24] MEDS: ATORVASTATIN 40 MG TABLET PO SCH (20:36)
[2023-01-24] MEDS: ARTIFICIAL TEARS 3.5 GM OINTMENT OS SCH (20:37)
[2023-01-24] MEDS: VANCOMYCIN 750MG VIAL IVPB SCH (20:39)
[2023-01-25] VITALS (32 sets, daily range): BP systolic 73–148; BP diastolic 39–83
[2023-01-25] MEDS: CHLORHEXIDINE GLUCONATE 473 ML MOUTHWASH MM SCH ×4 (02:12→20:46)
[2023-01-25] MEDS: FENTANYL 2500MCG+NS 250ML 250 ML IV SCH (02:17)
[2023-01-25] MEDS: PROPOFOL 1000 MG/100 ML 100 ML IV SCH ×3 (02:17→22:12)
[2023-01-25 03:39] LABS: MEAN CORPUSCULAR HEMOGLOBIN 33.2 pg (27.0-33.0); MEAN CORPUSCULAR HGB CONC 32.1 g/dL (32.0-36.0); MEAN CORPUSCULAR VOLUME 103.4 fL (79-99); RED BLOOD CELL COUNT(AUTO) 4.16 MIL/uL (4.50-6.20); RED CELL DISTRIBUTION WIDTH 12.2 % (11.0-15.5); WHITE BLOOD COUNT (AUTO) 12.9 K/uL (4.8-10.8)
[2023-01-25 03:45] LABS: POTASSIUM 3.6 mmol/L (3.5-5.1)
[2023-01-25] MEDS: INSULIN HUMULIN R 100 UNIT/ML 3ML SQ SCH ×4 (05:32→23:21)
[2023-01-25] MEDS ORDERED: BUDESONIDE 0.5 MG/2 ML INH IH ONE (06:17)
[2023-01-25] MEDS: ALBUTEROL 0.083% 2.5 MG/3 ML INH IH SCH ×4 (06:30→23:54)
[2023-01-25] MEDS: IPRATROPIUM 0.5 MG/2.5 ML INH IH SCH ×4 (06:30→23:54)
[2023-01-25] MEDS: BUDESONIDE 0.5 MG/2 ML INH IH SCH ×2 (06:35→20:05)
[2023-01-25] MEDS: CLOPIDOGREL 75MG TAB PO SCH (08:49)
[2023-01-25] MEDS: ASPIRIN 325MG TAB PO SCH (08:49)
[2023-01-25] MEDS: CARVEDILOL 3.125 MG TABLET PO SCH ×2 (08:50→23:23)
[2023-01-25] MEDS: ENOXAPARIN SODIUM 100 MG/1 ML SQ SCH ×2 (08:50→20:42)
[2023-01-25] MEDS: FAMOTIDINE 20MG VIAL IV SCH (08:50)
[2023-01-25] MEDS: NICOTINE 21 MG/ 24 HR PATCH TD SCH (08:50)
[2023-01-25] MEDS: METOCLOPRAMIDE 10 MG/2 ML VIAL IVP SCH ×3 (08:51→17:12)
[2023-01-25] MEDS: VANCOMYCIN 750MG VIAL IVPB SCH ×2 (08:52→20:39)
[2023-01-25] MEDS: MEROPENEM 1 GM VIAL IVP SCH ×2 (08:53→20:42)
[2023-01-25] MEDS ORDERED: LIDOCAINE HCL-MPF 1% 2ML VIAL IV PRN (10:00)
[2023-01-25] MEDS ORDERED: KCL 20 MEQ ERTAB PO PRN (10:00)
[2023-01-25] MEDS: POTASSIUM CHLORIDE 10% ELIXIR 20 MEQ/15 ML UDCUP PO PRN ×2 (10:49→13:24)
[2023-01-25] MEDS: DEXAMETHASONE SOD PHOSPHATE 4 MG/ML 1ML VIAL IVP SCH (10:49)
[2023-01-25] MEDS: ACETAMINOPHEN 650 MG/20.3 ML UDCUP PEG PRN (11:51)
[2023-01-25] MEDS: DEXMEDETOMIDINE 400MCG/NS100ML IV SCH ×3 (11:53→23:13)
[2023-01-25] MEDS: FUROSEMIDE 40MG VIAL IV SCH ×2 (12:27→23:12)
[2023-01-25] MEDS: ATORVASTATIN 40 MG TABLET PO SCH (20:46)
[2023-01-25] MEDS: ARTIFICIAL TEARS 3.5 GM OINTMENT OS SCH (20:47)
[2023-01-26] VITALS (33 sets, daily range): BP systolic 81–158; BP diastolic 35–88
[2023-01-26] MEDS: ACETAMINOPHEN 650 MG/20.3 ML UDCUP PEG PRN ×2 (00:55→12:37)
[2023-01-26] MEDS ORDERED: CHLORDIAZEPOXIDE HCL 25 MG CAP PO ONE (01:47)
[2023-01-26] MEDS: CHLORHEXIDINE GLUCONATE 473 ML MOUTHWASH MM SCH ×4 (02:35→21:47)
[2023-01-26 04:23] LABS: BASOPHILS % (AUTO) 0.2 % (0.0-5.0); EOSINOPHILS % (AUTO) 0.4 % (0.0-8.0); HEMATOCRIT 44.8 % (42-54); LYMPHOCYTES % (AUTO) 8.5 % (21.0-51.0); MEAN CORPUSCULAR VOLUME 99.8 fL (79-99); MONOCYTES % (AUTO) 7.6 % (3.0-13.0); NEUTROPHILS % (AUTO) 82.2 % (40.0-77.0); PLATELET COUNT (AUTO) 142 K/uL (130-400); RED BLOOD CELL COUNT(AUTO) 4.49 MIL/uL (4.50-6.20); RED CELL DISTRIBUTION WIDTH 12.2 % (11.0-15.5); WHITE BLOOD COUNT (AUTO) 14.9 K/uL (4.8-10.8)
[2023-01-26 04:49] LABS: ALBUMIN 2.8 g/dL (3.5-5.0); CREATININE 1.5 mg/dL (0.5-1.5); MAGNESIUM 2.5 mg/dL (1.80-2.40); POTASSIUM 3.6 mmol/L (3.5-5.1); TOTAL PROTEIN, SERUM 5.9 g/dL (6.0-8.3)
[2023-01-26] MEDS: POTASSIUM CHLORIDE 10% ELIXIR 20 MEQ/15 ML UDCUP PO PRN ×3 (05:55→21:14)
[2023-01-26] MEDS: INSULIN HUMULIN R 100 UNIT/ML 3ML SQ SCH ×3 (05:55→17:41)
[2023-01-26] MEDS: BUDESONIDE 0.5 MG/2 ML INH IH SCH ×2 (06:37→18:52)
[2023-01-26] MEDS: IPRATROPIUM 0.5 MG/2.5 ML INH IH SCH ×4 (06:37→23:32)
[2023-01-26] MEDS: ALBUTEROL 0.083% 2.5 MG/3 ML INH IH SCH ×4 (06:37→23:32)
[2023-01-26] MEDS: DEXMEDETOMIDINE 400MCG/NS100ML IV SCH ×2 (06:40→13:31)
[2023-01-26] MEDS: VANCOMYCIN 750MG VIAL IVPB SCH (08:00)
[2023-01-26] MEDS: NICOTINE 21 MG/ 24 HR PATCH TD SCH (08:23)
[2023-01-26] MEDS: METOCLOPRAMIDE 10 MG/2 ML VIAL IVP SCH ×3 (08:23→16:22)
[2023-01-26] MEDS: FAMOTIDINE 20MG VIAL IV SCH (08:23)
[2023-01-26] MEDS: ENOXAPARIN SODIUM 100 MG/1 ML SQ SCH ×2 (08:24→21:48)
[2023-01-26] MEDS: ASPIRIN 325MG TAB PO SCH (08:25)
[2023-01-26] MEDS: CHLORDIAZEPOXIDE HCL 25 MG CAP PO SCH ×2 (08:25→21:12)
[2023-01-26] MEDS: CARVEDILOL 3.125 MG TABLET PO SCH ×2 (08:26→21:13)
[2023-01-26] MEDS: CLOPIDOGREL 75MG TAB PO SCH (08:27)
[2023-01-26] MEDS: MEROPENEM 1 GM VIAL IVP SCH ×2 (08:37→21:14)
[2023-01-26 10:15] LABS: ABG BASE EXCESS 3.6 mmol/L (-2.0-3.0); ABG HCO3 27.6 mmol/L (21.0-28.0); ABG OXYGEN SATURATION 93.2 % (95.0-99.0); ABG PCO2 40 mmHg (35-48)
[2023-01-26 11:55] LABS: ABG BASE EXCESS 4.1 mmol/L (-2.0-3.0); ABG HCO3 28.2 mmol/L (21.0-28.0); ABG OXYGEN SATURATION 80.9 % (95.0-99.0); ABG PCO2 41 mmHg (35-48)
[2023-01-26 12:21] LABS: ABG BASE EXCESS 2.3 mmol/L (-2.0-3.0); ABG OXYGEN SATURATION 96.9 % (95.0-99.0); ABG PCO2 38 mmHg (35-48)
[2023-01-26] MEDS: FUROSEMIDE 40MG VIAL IV SCH ×2 (12:34→16:53)
[2023-01-26] MEDS: DEXAMETHASONE SOD PHOSPHATE 4 MG/ML 1ML VIAL IVP SCH (12:36)
[2023-01-26] MEDS: VANCOMYCIN 500MG+NS 100ML 100 ML IV SCH (17:45)
[2023-01-26 18:51] LABS: ABG BASE EXCESS 4.3 mmol/L (-2.0-3.0); ABG OXYGEN SATURATION 94.4 % (95.0-99.0); ABG PCO2 35 mmHg (35-48)
[2023-01-26] MEDS: ATORVASTATIN 40 MG TABLET PO SCH (21:11)
[2023-01-26] MEDS: ARTIFICIAL TEARS 3.5 GM OINTMENT OS SCH (21:46)
[2023-01-27] VITALS (29 sets, daily range): BP systolic 81–129; BP diastolic 41–98
[2023-01-27] MEDS: DEXMEDETOMIDINE 400MCG/NS100ML IV SCH ×2 (00:10→10:48)
[2023-01-27] MEDS: FUROSEMIDE 40MG VIAL IV SCH ×3 (01:11→17:00)
[2023-01-27] MEDS: POTASSIUM CHLORIDE 10% ELIXIR 20 MEQ/15 ML UDCUP PO PRN (01:20)
[2023-01-27] MEDS: CHLORHEXIDINE GLUCONATE 473 ML MOUTHWASH MM SCH ×4 (02:39→21:15)
[2023-01-27] MEDS: INSULIN HUMULIN R 100 UNIT/ML 3ML SQ SCH ×5 (06:00→23:44)
[2023-01-27] MEDS: BUDESONIDE 0.5 MG/2 ML INH IH SCH ×2 (07:15→19:03)
[2023-01-27] MEDS: IPRATROPIUM 0.5 MG/2.5 ML INH IH SCH ×4 (07:15→23:42)
[2023-01-27] MEDS: ALBUTEROL 0.083% 2.5 MG/3 ML INH IH SCH ×4 (07:15→23:42)
[2023-01-27] MEDS: VANCOMYCIN 500MG+NS 100ML 100 ML IV SCH ×2 (07:42→17:04)
[2023-01-27] MEDS: FAMOTIDINE 20MG VIAL IV SCH (08:49)
[2023-01-27] MEDS: MEROPENEM 1 GM VIAL IVP SCH ×2 (08:50→21:13)
[2023-01-27] MEDS: ASPIRIN 325MG TAB PO SCH (08:51)
[2023-01-27] MEDS: ENOXAPARIN SODIUM 100 MG/1 ML SQ SCH ×2 (08:53→21:14)
[2023-01-27] MEDS: NICOTINE 21 MG/ 24 HR PATCH TD SCH (08:54)
[2023-01-27] MEDS: CLOPIDOGREL 75MG TAB PO SCH (08:54)
[2023-01-27] MEDS: CHLORDIAZEPOXIDE HCL 25 MG CAP PO SCH ×2 (08:54→21:13)
[2023-01-27] MEDS: METOCLOPRAMIDE 10 MG/2 ML VIAL IVP SCH ×3 (08:54→17:00)
[2023-01-27] MEDS: DEXAMETHASONE SOD PHOSPHATE 4 MG/ML 1ML VIAL IVP SCH (08:59)
[2023-01-27 10:04] LABS: ABG BASE EXCESS 5.6 mmol/L (-2.0-3.0); ABG HCO3 30.3 mmol/L (21.0-28.0); ABG OXYGEN SATURATION 95.9 % (95.0-99.0); ABG PCO2 44 mmHg (35-48)
[2023-01-27] MEDS: MIDODRINE HCL 5 MG TABLET PO SCH ×3 (10:47→21:14)
[2023-01-27] MEDS: CARVEDILOL 3.125 MG TABLET PO SCH (10:50)
[2023-01-27 11:54] LABS: BASOPHILS % (AUTO) 0.2 % (0.0-5.0); EOSINOPHILS % (AUTO) 0.2 % (0.0-8.0); HEMATOCRIT 43.4 % (42-54); LYMPHOCYTES % (AUTO) 6.3 % (21.0-51.0); MEAN CORPUSCULAR HEMOGLOBIN 33.2 pg (27.0-33.0); MEAN CORPUSCULAR HGB CONC 32.3 g/dL (32.0-36.0); MEAN CORPUSCULAR VOLUME 102.8 fL (79-99); MONOCYTES % (AUTO) 4.8 % (3.0-13.0); NEUTROPHILS % (AUTO) 87.7 % (40.0-77.0); PLATELET COUNT (AUTO) 165 K/uL (130-400); RED BLOOD CELL COUNT(AUTO) 4.22 MIL/uL (4.50-6.20); RED CELL DISTRIBUTION WIDTH 12.4 % (11.0-15.5); WHITE BLOOD COUNT (AUTO) 17.3 K/uL (4.8-10.8)
[2023-01-27 12:06] LABS: CREATININE 1.6 mg/dL (0.5-1.5); POTASSIUM 3.8 mmol/L (3.5-5.1)
[2023-01-27 12:10] LABS: ALBUMIN 2.8 g/dL (3.5-5.0); MAGNESIUM 2.7 mg/dL (1.80-2.40); PHOSPHORUS 5.2 mg/dL (2.5-4.9); TOTAL PROTEIN, SERUM 5.8 g/dL (6.0-8.3)
[2023-01-27] MEDS: ATORVASTATIN 40 MG TABLET PO SCH (21:13)
[2023-01-27] MEDS: ARTIFICIAL TEARS 3.5 GM OINTMENT OS SCH (21:15)
[2023-01-28] VITALS (17 sets, daily range): BP systolic 98–148; BP diastolic 47–89
[2023-01-28] MEDS: FUROSEMIDE 40MG VIAL IV SCH ×3 (01:33→16:51)
[2023-01-28] MEDS: CHLORHEXIDINE GLUCONATE 473 ML MOUTHWASH MM SCH ×4 (03:14→20:18)
[2023-01-28 03:29] LABS: ABG BASE EXCESS 8.4 mmol/L (-2.0-3.0); ABG HCO3 33.4 mmol/L (21.0-28.0); ABG PCO2 47 mmHg (35-48)
[2023-01-28] MEDS: INSULIN HUMULIN R 100 UNIT/ML 3ML SQ SCH ×3 (05:42→17:53)
[2023-01-28 05:48] LABS: BASOPHILS % (AUTO) 0.2 % (0.0-5.0); EOSINOPHILS % (AUTO) 0.7 % (0.0-8.0); HEMATOCRIT 45.5 % (42-54); LYMPHOCYTES % (AUTO) 9.2 % (21.0-51.0); MEAN CORPUSCULAR HEMOGLOBIN 33.1 pg (27.0-33.0); MEAN CORPUSCULAR HGB CONC 32.1 g/dL (32.0-36.0); MEAN CORPUSCULAR VOLUME 103.2 fL (79-99); MONOCYTES % (AUTO) 6.6 % (3.0-13.0); NEUTROPHILS % (AUTO) 82.5 % (40.0-77.0); PLATELET COUNT (AUTO) 205 K/uL (130-400); RED BLOOD CELL COUNT(AUTO) 4.41 MIL/uL (4.50-6.20); RED CELL DISTRIBUTION WIDTH 12.3 % (11.0-15.5); WHITE BLOOD COUNT (AUTO) 23.9 K/uL (4.8-10.8)
[2023-01-28 06:01] LABS: CREATININE 1.5 mg/dL (0.5-1.5); PHOSPHORUS 4.6 mg/dL (2.5-4.9); POTASSIUM 3.3 mmol/L (3.5-5.1); TOTAL PROTEIN, SERUM 6.3 g/dL (6.0-8.3)
[2023-01-28] MEDS: ALBUTEROL 0.083% 2.5 MG/3 ML INH IH SCH ×4 (06:59→22:59)
[2023-01-28] MEDS: BUDESONIDE 0.5 MG/2 ML INH IH SCH ×2 (06:59→18:49)
[2023-01-28] MEDS: IPRATROPIUM 0.5 MG/2.5 ML INH IH SCH ×4 (06:59→23:00)
[2023-01-28] MEDS: CHLORDIAZEPOXIDE HCL 25 MG CAP PO SCH ×2 (08:46→19:53)
[2023-01-28] MEDS: MEROPENEM 1 GM VIAL IVP SCH ×2 (08:46→19:53)
[2023-01-28] MEDS: FAMOTIDINE 20MG VIAL IV SCH (08:46)
[2023-01-28] MEDS: ASPIRIN 325MG TAB PO SCH (08:47)
[2023-01-28] MEDS: METOCLOPRAMIDE 10 MG/2 ML VIAL IVP SCH ×3 (08:47→16:50)
[2023-01-28] MEDS: CLOPIDOGREL 75MG TAB PO SCH (08:48)
[2023-01-28] MEDS: MIDODRINE HCL 5 MG TABLET PO SCH ×3 (08:48→19:53)
[2023-01-28] MEDS: ENOXAPARIN SODIUM 100 MG/1 ML SQ SCH ×2 (08:48→19:53)
[2023-01-28] MEDS: NICOTINE 21 MG/ 24 HR PATCH TD SCH (08:49)
[2023-01-28] MEDS: DEXTROSE 5%-WATER 1,000 ML IV SCH (08:49)
[2023-01-28] MEDS: VANCOMYCIN 500MG+NS 100ML 100 ML IV SCH ×2 (08:49→17:09)
[2023-01-28] MEDS ORDERED: TAMSULOSIN HCL 0.4 MG CAP.ER.24H PO ONE (12:24)
[2023-01-28] MEDS: DEXAMETHASONE SOD PHOSPHATE 4 MG/ML 1ML VIAL IVP SCH (12:51)
[2023-01-28] MEDS: ATORVASTATIN 40 MG TABLET PO SCH (19:53)
[2023-01-28] MEDS: ARTIFICIAL TEARS 3.5 GM OINTMENT OS SCH (20:20)
[2023-01-29] MEDS: FUROSEMIDE 40MG VIAL IV SCH ×3 (01:11→21:16)
[2023-01-29] MEDS ORDERED: LORAZEPAM 2 MG/ML 1 ML VIAL IVP ONE ×2 (02:00→07:30)
[2023-01-29] MEDS: CHLORHEXIDINE GLUCONATE 473 ML MOUTHWASH MM SCH (02:10)
[2023-01-29] MEDS: DEXTROSE 5%-WATER 1,000 ML IV SCH (03:59)
[2023-01-29 04:01] VITALS: BP 98/63
[2023-01-29] MEDS: INSULIN HUMULIN R 100 UNIT/ML 3ML SQ SCH ×4 (05:17→16:34)
[2023-01-29] MEDS: VANCOMYCIN 500MG+NS 100ML 100 ML IV SCH ×2 (05:18→17:33)
[2023-01-29 06:52] VITALS: BP 107/60
[2023-01-29] MEDS: ALBUTEROL 0.083% 2.5 MG/3 ML INH IH SCH ×3 (07:05→18:00)
[2023-01-29] MEDS: IPRATROPIUM 0.5 MG/2.5 ML INH IH SCH ×2 (07:05→11:31)
[2023-01-29] MEDS: BUDESONIDE 0.5 MG/2 ML INH IH SCH (07:05)
[2023-01-29] MEDS: METOCLOPRAMIDE 10 MG/2 ML VIAL IVP SCH ×3 (08:39→16:13)
[2023-01-29] MEDS: ENOXAPARIN SODIUM 100 MG/1 ML SQ SCH ×2 (08:40→20:59)
[2023-01-29] MEDS: FAMOTIDINE 20MG VIAL IV SCH (08:41)
[2023-01-29] MEDS: NICOTINE 21 MG/ 24 HR PATCH TD SCH (08:41)
[2023-01-29] MEDS: CLOPIDOGREL 75MG TAB PO SCH (09:00)
[2023-01-29] MEDS: ASPIRIN 325MG TAB PO SCH (09:00)
[2023-01-29] MEDS: CHLORDIAZEPOXIDE HCL 25 MG CAP PO SCH ×2 (09:00→21:00)
[2023-01-29] MEDS: TAMSULOSIN HCL 0.4 MG CAP.ER.24H PO SCH (09:00)
[2023-01-29] MEDS: MIDODRINE HCL 5 MG TABLET PO SCH ×3 (09:00→21:00)
[2023-01-29] MEDS: MEROPENEM 1 GM VIAL IVP SCH ×2 (09:10→21:00)
[2023-01-29 09:22] LABS: BASOPHILS % (AUTO) 0.2 % (0.0-5.0); EOSINOPHILS % (AUTO) 0.8 % (0.0-8.0); HEMATOCRIT 42.5 % (42-54); LYMPHOCYTES % (AUTO) 9.6 % (21.0-51.0); MEAN CORPUSCULAR HEMOGLOBIN 33.2 pg (27.0-33.0); MEAN CORPUSCULAR VOLUME 103.7 fL (79-99); MONOCYTES % (AUTO) 6.4 % (3.0-13.0); NEUTROPHILS % (AUTO) 82.4 % (40.0-77.0); PLATELET COUNT (AUTO) 192 K/uL (130-400); RED CELL DISTRIBUTION WIDTH 12.4 % (11.0-15.5); WHITE BLOOD COUNT (AUTO) 16.2 K/uL (4.8-10.8)
[2023-01-29 09:38] LABS: CREATININE 1.9 mg/dL (0.5-1.5); POTASSIUM 3.1 mmol/L (3.5-5.1); TOTAL PROTEIN, SERUM 6.3 g/dL (6.0-8.3)
[2023-01-29 11:00] VITALS: BP 100/60
[2023-01-29] MEDS: DEXAMETHASONE SOD PHOSPHATE 4 MG/ML 1ML VIAL IVP SCH (11:33)
[2023-01-29] MEDS ORDERED: POTASSIUM CHLORIDE 20 MEQ/100 ML BAG IV SCH (12:00)
[2023-01-29 15:00] VITALS: BP 105/72
[2023-01-29 19:05] VITALS: BP 110/61
[2023-01-29] MEDS: ATORVASTATIN 40 MG TABLET PO SCH (20:50)
[2023-01-29] MEDS: ARTIFICIAL TEARS 3.5 GM OINTMENT OS SCH (21:16)
[2023-01-29 23:22] VITALS: BP 96/59
[2023-01-30] MEDS: IPRATROPIUM 0.5 MG/2.5 ML INH IH SCH ×5 (00:50→19:33)
[2023-01-30] MEDS: BUDESONIDE 0.5 MG/2 ML INH IH SCH ×3 (00:50→19:33)
[2023-01-30] MEDS: ALBUTEROL 0.083% 2.5 MG/3 ML INH IH SCH ×4 (00:52→19:33)
[2023-01-30 03:07] VITALS: BP 103/51
[2023-01-30] MEDS: DEXTROSE 5%-WATER 1,000 ML IV SCH ×2 (03:20→05:43)
[2023-01-30 03:40] LABS: BASOPHILS % (AUTO) 0.2 % (0.0-5.0); EOSINOPHILS % (AUTO) 0.4 % (0.0-8.0); HEMATOCRIT 39.5 % (42-54); LYMPHOCYTES % (AUTO) 9.9 % (21.0-51.0); MEAN CORPUSCULAR HEMOGLOBIN 33.1 pg (27.0-33.0); MEAN CORPUSCULAR HGB CONC 31.4 g/dL (32.0-36.0); MEAN CORPUSCULAR VOLUME 105.3 fL (79-99); MONOCYTES % (AUTO) 7.3 % (3.0-13.0); NEUTROPHILS % (AUTO) 81.6 % (40.0-77.0); PLATELET COUNT (AUTO) 174 K/uL (130-400); RED BLOOD CELL COUNT(AUTO) 3.75 MIL/uL (4.50-6.20); RED CELL DISTRIBUTION WIDTH 12.3 % (11.0-15.5)
[2023-01-30 03:59] LABS: ALBUMIN 2.9 g/dL (3.5-5.0); CREATININE 1.9 mg/dL (0.5-1.5); POTASSIUM 3.3 mmol/L (3.5-5.1); TOTAL PROTEIN, SERUM 6.1 g/dL (6.0-8.3)
[2023-01-30] MEDS: VANCOMYCIN 500MG+NS 100ML 100 ML IV SCH ×2 (05:37→17:27)
[2023-01-30] MEDS: POTASSIUM CHLORIDE 20MEQ/100ML 100 ML IV PRN (05:38)
[2023-01-30] MEDS: INSULIN HUMULIN R 100 UNIT/ML 3ML SQ SCH ×4 (06:00→17:23)
[2023-01-30 06:39] VITALS: BP 118/47
[2023-01-30] MEDS: METOCLOPRAMIDE 10 MG/2 ML VIAL IVP SCH ×3 (07:16→16:26)
[2023-01-30] MEDS: TAMSULOSIN HCL 0.4 MG CAP.ER.24H PO SCH (09:00)
[2023-01-30] MEDS: MIDODRINE HCL 5 MG TABLET PO SCH ×3 (09:00→21:01)
[2023-01-30] MEDS: ASPIRIN 325MG TAB PO SCH (09:00)
[2023-01-30] MEDS: CHLORDIAZEPOXIDE HCL 25 MG CAP PO SCH ×2 (09:00→21:01)
[2023-01-30] MEDS: CLOPIDOGREL 75MG TAB PO SCH (09:00)
[2023-01-30] MEDS: FAMOTIDINE 20MG VIAL IV SCH (10:18)
[2023-01-30] MEDS: DEXAMETHASONE SOD PHOSPHATE 4 MG/ML 1ML VIAL IVP SCH (10:18)
[2023-01-30] MEDS: ENOXAPARIN SODIUM 100 MG/1 ML SQ SCH ×2 (10:18→21:00)
[2023-01-30] MEDS: NICOTINE 21 MG/ 24 HR PATCH TD SCH (10:19)
[2023-01-30] MEDS: MEROPENEM 1 GM VIAL IVP SCH ×2 (10:19→21:01)
[2023-01-30] MEDS: FUROSEMIDE 40MG VIAL IV SCH ×2 (10:20→21:00)
[2023-01-30 12:21] VITALS: BP 95/53
[2023-01-30 16:56] VITALS: BP 100/57
[2023-01-30 19:39] VITALS: BP 93/52
[2023-01-30] MEDS: ATORVASTATIN 40 MG TABLET PO SCH (21:01)
[2023-01-30] MEDS: ARTIFICIAL TEARS 3.5 GM OINTMENT OS SCH (21:01)
[2023-01-31] VITALS (7 sets, daily range): BP systolic 96–147; BP diastolic 50–90
[2023-01-31] MEDS: INSULIN HUMULIN R 100 UNIT/ML 3ML SQ SCH ×4 (00:03→17:39)
[2023-01-31] MEDS: ALBUTEROL 0.083% 2.5 MG/3 ML INH IH SCH ×4 (00:23→19:38)
[2023-01-31] MEDS: IPRATROPIUM 0.5 MG/2.5 ML INH IH SCH ×4 (00:23→19:38)
[2023-01-31] MEDS ORDERED: HYDROXYZINE 25 MG TABLET PO ONE (01:00)
[2023-01-31 04:08] LABS: BASOPHILS % (AUTO) 0.1 % (0.0-5.0); EOSINOPHILS % (AUTO) 0.5 % (0.0-8.0); HEMATOCRIT 36.7 % (42-54); LYMPHOCYTES % (AUTO) 10.3 % (21.0-51.0); MEAN CORPUSCULAR HEMOGLOBIN 33.3 pg (27.0-33.0); MEAN CORPUSCULAR HGB CONC 32.4 g/dL (32.0-36.0); MEAN CORPUSCULAR VOLUME 102.8 fL (79-99); MONOCYTES % (AUTO) 5.2 % (3.0-13.0); NEUTROPHILS % (AUTO) 82.9 % (40.0-77.0); PLATELET COUNT (AUTO) 183 K/uL (130-400); RED BLOOD CELL COUNT(AUTO) 3.57 MIL/uL (4.50-6.20); WHITE BLOOD COUNT (AUTO) 13.9 K/uL (4.8-10.8)
[2023-01-31 04:28] LABS: ALBUMIN 2.9 g/dL (3.5-5.0); CREATININE 1.9 mg/dL (0.5-1.5); TOTAL PROTEIN, SERUM 6.1 g/dL (6.0-8.3)
[2023-01-31 04:37] LABS: POTASSIUM 2.9 mmol/L (3.5-5.1)
[2023-01-31] MEDS: VANCOMYCIN 500MG+NS 100ML 100 ML IV SCH ×2 (05:14→17:52)
[2023-01-31] MEDS: POTASSIUM CHLORIDE 20MEQ/100ML 100 ML IV PRN (05:14)
[2023-01-31] MEDS: BUDESONIDE 0.5 MG/2 ML INH IH SCH ×2 (06:46→19:38)
[2023-01-31] MEDS: METOCLOPRAMIDE 10 MG/2 ML VIAL IVP SCH ×3 (08:33→17:11)
[2023-01-31] MEDS: ENOXAPARIN SODIUM 100 MG/1 ML SQ SCH ×2 (08:34→20:06)
[2023-01-31] MEDS: FUROSEMIDE 40MG VIAL IV SCH ×2 (08:35→20:07)
[2023-01-31] MEDS: CHLORDIAZEPOXIDE HCL 25 MG CAP PO SCH (08:36)
[2023-01-31] MEDS: POTASSIUM CHLORIDE 10% ELIXIR 20 MEQ/15 ML UDCUP PO PRN ×2 (08:36→10:28)
[2023-01-31] MEDS: MIDODRINE HCL 5 MG TABLET PO SCH ×3 (08:37→20:07)
[2023-01-31] MEDS: CLOPIDOGREL 75MG TAB PO SCH (08:37)
[2023-01-31] MEDS: ASPIRIN 325MG TAB PO SCH (08:37)
[2023-01-31] MEDS: TAMSULOSIN HCL 0.4 MG CAP.ER.24H PO SCH (08:37)
[2023-01-31] MEDS: MEROPENEM 1 GM VIAL IVP SCH ×2 (08:38→20:07)
[2023-01-31] MEDS: FAMOTIDINE 20MG VIAL IV SCH (08:39)
[2023-01-31] MEDS: NICOTINE 21 MG/ 24 HR PATCH TD SCH (08:40)
[2023-01-31] MEDS: DEXAMETHASONE SOD PHOSPHATE 4 MG/ML 1ML VIAL IVP SCH (11:03)
[2023-01-31 12:51] LABS: AMMONIA < 10 umol/L (11-32); POTASSIUM 3.2 mmol/L (3.5-5.1)
[2023-01-31] MEDS ORDERED: POTASSIUM CHLORIDE 20 MEQ/100 ML BAG IV SCH (14:00)
[2023-01-31] MEDS: ATORVASTATIN 40 MG TABLET PO SCH (20:07)
[2023-01-31] MEDS: ARTIFICIAL TEARS 3.5 GM OINTMENT OS SCH (22:42)
[2023-02-01] VITALS (67 sets, daily range): BP systolic 67–146; BP diastolic 37–101
[2023-02-01] MEDS: ALBUTEROL 0.083% 2.5 MG/3 ML INH IH SCH ×6 (00:13→23:28)
[2023-02-01] MEDS: IPRATROPIUM 0.5 MG/2.5 ML INH IH SCH ×5 (00:13→23:28)
[2023-02-01 04:07] LABS: BASOPHILS % (AUTO) 0.2 % (0.0-5.0); EOSINOPHILS % (AUTO) 1.1 % (0.0-8.0); HEMATOCRIT 36.6 % (42-54); LYMPHOCYTES % (AUTO) 10.9 % (21.0-51.0); MEAN CORPUSCULAR HEMOGLOBIN 33.3 pg (27.0-33.0); MEAN CORPUSCULAR HGB CONC 31.4 g/dL (32.0-36.0); MEAN CORPUSCULAR VOLUME 106.1 fL (79-99); MONOCYTES % (AUTO) 5.1 % (3.0-13.0); NEUTROPHILS % (AUTO) 82.1 % (40.0-77.0); NUCLEATED RED BLOOD CELLS 0.2 % (0.0-0.19); PLATELET COUNT (AUTO) 174 K/uL (130-400); RED BLOOD CELL COUNT(AUTO) 3.45 MIL/uL (4.50-6.20); RED CELL DISTRIBUTION WIDTH 12.5 % (11.0-15.5); WHITE BLOOD COUNT (AUTO) 12.6 K/uL (4.8-10.8)
[2023-02-01 04:35] LABS: ALBUMIN 3.1 g/dL (3.5-5.0); CREATININE 1.8 mg/dL (0.5-1.5); POTASSIUM 3.3 mmol/L (3.5-5.1); TOTAL PROTEIN, SERUM 6.4 g/dL (6.0-8.3)
[2023-02-01] MEDS: POTASSIUM CHLORIDE 20MEQ/100ML 100 ML IV PRN ×2 (05:00→08:56)
[2023-02-01] MEDS: VANCOMYCIN 500MG+NS 100ML 100 ML IV SCH ×2 (05:08→18:11)
[2023-02-01] MEDS: INSULIN HUMULIN R 100 UNIT/ML 3ML SQ SCH ×4 (06:00→18:33)
[2023-02-01] MEDS: BUDESONIDE 0.5 MG/2 ML INH IH SCH ×2 (06:30→18:39)
[2023-02-01] MEDS: DEXTROSE 5%-WATER 1,000 ML IV SCH ×2 (06:42→10:01)
[2023-02-01] MEDS ORDERED: SOLU-MEDROL 125MG VIAL IVP STA (07:47)
[2023-02-01] MEDS ORDERED: SOLU-MEDROL 125MG VIAL ONE (07:52)
[2023-02-01 07:53] LABS: ABG BASE EXCESS 7.9 mmol/L (-2.0-3.0); ABG HCO3 32.9 mmol/L (21.0-28.0); ABG PCO2 48 mmHg (35-48)
[2023-02-01] MEDS: FUROSEMIDE 40MG VIAL IV SCH ×2 (08:55→20:23)
[2023-02-01] MEDS: ENOXAPARIN SODIUM 100 MG/1 ML SQ SCH ×2 (08:55→20:23)
[2023-02-01] MEDS: METOCLOPRAMIDE 10 MG/2 ML VIAL IVP SCH ×3 (08:55→18:11)
[2023-02-01] MEDS: MEROPENEM 1 GM VIAL IVP SCH ×2 (08:56→20:23)
[2023-02-01] MEDS: FAMOTIDINE 20MG VIAL IV SCH (08:58)
[2023-02-01] MEDS: ASPIRIN 325MG TAB PO SCH (09:00)
[2023-02-01] MEDS: CLOPIDOGREL 75MG TAB PO SCH (09:00)
[2023-02-01] MEDS: TAMSULOSIN HCL 0.4 MG CAP.ER.24H PO SCH (09:00)
[2023-02-01] MEDS: MIDODRINE HCL 5 MG TABLET PO SCH ×3 (09:00→20:24)
[2023-02-01] MEDS: DEXAMETHASONE SOD PHOSPHATE 4 MG/ML 1ML VIAL IVP SCH (11:04)
[2023-02-01] MEDS: NICOTINE 21 MG/ 24 HR PATCH TD SCH (11:04)
[2023-02-01 13:20] LABS: ABG BASE EXCESS 6.4 mmol/L (-2.0-3.0); ABG HCO3 32.4 mmol/L (21.0-28.0); ABG OXYGEN SATURATION 98.8 % (95.0-99.0); ABG PCO2 52 mmHg (35-48)
[2023-02-01] MEDS ORDERED: FENTANYL 2500MCG+NS 250ML 250 ML IV ONE (14:07)
[2023-02-01] MEDS ORDERED: PROPOFOL 1000 MG/100 ML 100 ML IV ONE (14:10)
[2023-02-01] MEDS ORDERED: DOPAMINE HCL 400 MG/D5%-WATER 250 ML IV ONE (14:16)
[2023-02-01] MEDS ORDERED: FENTANYL 2500MCG+NS 250ML IV.SOLN IV SCH (14:30)
[2023-02-01] MEDS ORDERED: SODIUM BICARB 50MEQ 50ML VIAL 150 ML ONE (14:43)
[2023-02-01] MEDS ORDERED: CISATRACURIUM BESYLATE 2 MG/ML 10ML VIAL IVP SCH (15:30)
[2023-02-01 15:37] LABS: HEMATOCRIT 39.6 % (42-54); MEAN CORPUSCULAR HEMOGLOBIN 33.1 pg (27.0-33.0); MEAN CORPUSCULAR HGB CONC 29.5 g/dL (32.0-36.0); MEAN CORPUSCULAR VOLUME 111.9 fL (79-99); NUCLEATED RED BLOOD CELLS 1.5 % (0.0-0.19); RED BLOOD CELL COUNT(AUTO) 3.54 MIL/uL (4.50-6.20); RED CELL DISTRIBUTION WIDTH 12.6 % (11.0-15.5); WHITE BLOOD COUNT (AUTO) 10.3 K/uL (4.8-10.8)
[2023-02-01 15:49] LABS: ALBUMIN 2.6 g/dL (3.5-5.0); CREATININE 2.1 mg/dL (0.5-1.5); MAGNESIUM 4.3 mg/dL (1.80-2.40); PHOSPHORUS 7.4 mg/dL (2.5-4.9); POTASSIUM 5.2 mmol/L (3.5-5.1)
[2023-02-01 15:51] LABS: INR 1.09 (0.85-1.15); PROTHROMBIN TIME 11.8 SEC (9.6-11.6)
[2023-02-01 15:52] LABS: PARTIAL THROMBOPLASTIN TIME 23.8 SEC (26.3-35.5)
[2023-02-01] MEDS ORDERED: PHARMACY COMMUNICATION MISC SCH ×2 (16:00→16:30)
[2023-02-01 17:14] LABS: ABG BASE EXCESS -7.3 mmol/L (-2.0-3.0); ABG HCO3 22.5 mmol/L (21.0-28.0); ABG OXYGEN SATURATION 97.2 % (95.0-99.0); ABG PCO2 66 mmHg (35-48)
[2023-02-01] MEDS: EPINEPHRINE PF 1MG (1:1,000) 10 MG in 0.9% NACL 250ML 240 ML IV PRN (17:32)
[2023-02-01] MEDS: CISATRACURIUM BESYLATE 100 MG in 0.9%NACL 100ML 100 ML IV SCH (17:41)
[2023-02-01] MEDS: HYDROCORTISONE SOD SUCCINATE 100 MG/2 ML VIAL IVP SCH ×2 (18:11→20:23)
[2023-02-01] MEDS: ATORVASTATIN 40 MG TABLET PO SCH (20:24)
[2023-02-01] MEDS: ARTIFICIAL TEARS 3.5 GM OINTMENT OS SCH (21:12)
[2023-02-01] MEDS ORDERED: PHENYLEPHRINE HCL 10 MG/ML 1ML VIAL IV ONE (23:25)
[2023-02-02] VITALS (100 sets, daily range): BP systolic 58–157; BP diastolic 34–79
[2023-02-02] MEDS: PROPOFOL 1000 MG/100 ML IV PRN ×3 (00:19→20:26)
[2023-02-02] MEDS: INSULIN HUMULIN R 100 UNIT/ML 3ML SQ SCH ×4 (00:19→17:55)
[2023-02-02] MEDS ORDERED: PHENYLEPHRINE HCL 10 MG/ML 1ML VIAL IV ONE ×3 (02:14→06:06)
[2023-02-02 03:16] LABS: ABG BASE EXCESS 2.6 mmol/L (-2.0-3.0); ABG HCO3 28.9 mmol/L (21.0-28.0); ABG OXYGEN SATURATION 98.1 % (95.0-99.0); ABG PCO2 51 mmHg (35-48)
[2023-02-02] MEDS ORDERED: EPINEPHRINE 1MG/10ML(1:10,000) 0.1 MG/ML SYG ONE (04:07)
[2023-02-02 05:00] LABS: ALBUMIN 2.7 g/dL (3.5-5.0); CREATININE 4.1 mg/dL (0.5-1.5); TOTAL PROTEIN, SERUM 6.1 g/dL (6.0-8.3)
[2023-02-02] MEDS ORDERED: VASOPRESSIN 40 UNITS in 0.9%NACL 50ML 40 ML IV SCH (06:00)
[2023-02-02] MEDS: VANCOMYCIN 500MG+NS 100ML 100 ML IV SCH (06:10)
[2023-02-02] MEDS: ALBUTEROL 0.083% 2.5 MG/3 ML INH IH SCH ×4 (06:51→23:19)
[2023-02-02] MEDS: IPRATROPIUM 0.5 MG/2.5 ML INH IH SCH ×4 (06:51→23:19)
[2023-02-02] MEDS: BUDESONIDE 0.5 MG/2 ML INH IH SCH ×2 (06:52→18:52)
[2023-02-02] MEDS: ASPIRIN 325MG TAB PO SCH (08:27)
[2023-02-02] MEDS: MIDODRINE HCL 5 MG TABLET PO SCH ×3 (08:27→20:28)
[2023-02-02] MEDS: HYDROCORTISONE SOD SUCCINATE 100 MG/2 ML VIAL IVP SCH ×4 (08:28→20:28)
[2023-02-02] MEDS: CLOPIDOGREL 75MG TAB PO SCH (08:28)
[2023-02-02] MEDS: FUROSEMIDE 40MG VIAL IV SCH ×2 (08:28→20:28)
[2023-02-02] MEDS: MEROPENEM 1 GM VIAL IVP SCH ×2 (08:28→20:28)
[2023-02-02] MEDS: FAMOTIDINE 20MG VIAL IV SCH (08:28)
[2023-02-02] MEDS: ENOXAPARIN SODIUM 100 MG/1 ML SQ SCH ×2 (08:29→20:28)
[2023-02-02] MEDS: METOCLOPRAMIDE 10 MG/2 ML VIAL IVP SCH ×3 (08:29→16:40)
[2023-02-02] MEDS: TAMSULOSIN HCL 0.4 MG CAP.ER.24H PO SCH (08:30)
[2023-02-02] MEDS: NICOTINE 21 MG/ 24 HR PATCH TD SCH (08:30)
[2023-02-02] MEDS ORDERED: PHARMACY COMMUNICATION MISC SCH ×5 (08:30→18:30)
[2023-02-02] MEDS: INSULIN GLARGINE 100 UNITS/ML 10 ML VIAL SQ SCH ×2 (08:31→20:26)
[2023-02-02] MEDS: EPINEPHRINE PF 1MG (1:1,000) 10 MG in 0.9% NACL 250ML 240 ML IV PRN (10:02)
[2023-02-02] MEDS: PHENYLEPHRINE HCL 100 MG in 0.9% NACL 250ML 240 ML IV PRN ×2 (10:04→16:30)
[2023-02-02] MEDS: CISATRACURIUM BESYLATE 100 MG in 0.9%NACL 100ML 100 ML IV SCH ×2 (12:32→19:27)
[2023-02-02] MEDS: LINEZOLID 600 MG/ISO-OSM 300 ML IV SCH (13:45)
[2023-02-02] MEDS: ACETAMINOPHEN 650 MG/20.3 ML UDCUP PEG PRN (14:02)
[2023-02-02] MEDS ORDERED: FUROSEMIDE 100MG VIAL IVP SCH (16:00)
[2023-02-02] MEDS: ATORVASTATIN 40 MG TABLET PO SCH (20:28)
[2023-02-02] MEDS: ARTIFICIAL TEARS 3.5 GM OINTMENT OS SCH (20:29)
[2023-02-02] MEDS: DEXTROSE 5%-WATER 1,000 ML IV SCH (22:41)
[2023-02-03] VITALS (80 sets, daily range): BP systolic 72–146; BP diastolic 38–93
[2023-02-03] MEDS: INSULIN HUMULIN R 100 UNIT/ML 3ML SQ SCH ×4 (00:09→17:25)
[2023-02-03] MEDS: ACETAMINOPHEN 650 MG/20.3 ML UDCUP PEG PRN ×4 (00:10→20:05)
[2023-02-03] MEDS: LINEZOLID 600 MG/ISO-OSM 300 ML IV SCH ×2 (00:10→11:40)
[2023-02-03 03:23] LABS: ABG BASE EXCESS 0.9 mmol/L (-2.0-3.0); ABG HCO3 26.1 mmol/L (21.0-28.0); ABG PCO2 44 mmHg (35-48)
[2023-02-03 04:05] LABS: ALBUMIN 2.3 g/dL (3.5-5.0); CREATININE 6.1 mg/dL (0.5-1.5); MAGNESIUM 3.1 mg/dL (1.80-2.40); PHOSPHORUS 5.1 mg/dL (2.5-4.9); POTASSIUM 4.5 mmol/L (3.5-5.1); TOTAL PROTEIN, SERUM 5.3 g/dL (6.0-8.3)
[2023-02-03] MEDS: BUDESONIDE 0.5 MG/2 ML INH IH SCH ×2 (06:20→19:10)
[2023-02-03] MEDS: IPRATROPIUM 0.5 MG/2.5 ML INH IH SCH ×3 (06:20→19:10)
[2023-02-03] MEDS: ALBUTEROL 0.083% 2.5 MG/3 ML INH IH SCH ×3 (06:21→19:10)
[2023-02-03] MEDS: TAMSULOSIN HCL 0.4 MG CAP.ER.24H PO SCH (08:09)
[2023-02-03] MEDS: METOCLOPRAMIDE 10 MG/2 ML VIAL IVP SCH ×3 (08:09→16:30)
[2023-02-03] MEDS: ASPIRIN 325MG TAB PO SCH (08:10)
[2023-02-03] MEDS: MEROPENEM 1 GM VIAL IVP SCH ×2 (08:10→20:05)
[2023-02-03] MEDS: CLOPIDOGREL 75MG TAB PO SCH (08:10)
[2023-02-03] MEDS: HYDROCORTISONE SOD SUCCINATE 100 MG/2 ML VIAL IVP SCH ×4 (08:10→20:05)
[2023-02-03] MEDS: MIDODRINE HCL 5 MG TABLET PO SCH ×3 (08:11→20:05)
[2023-02-03] MEDS: FAMOTIDINE 20MG VIAL IV SCH (08:11)
[2023-02-03] MEDS: INSULIN GLARGINE 100 UNITS/ML 10 ML VIAL SQ SCH ×2 (08:12→20:07)
[2023-02-03] MEDS: NICOTINE 21 MG/ 24 HR PATCH TD SCH (08:13)
[2023-02-03] MEDS: FUROSEMIDE 40MG VIAL IV SCH ×2 (08:13→20:05)
[2023-02-03] MEDS: ENOXAPARIN SODIUM 100 MG/1 ML SQ SCH (08:15)
[2023-02-03] MEDS: PHENYLEPHRINE HCL 100 MG in 0.9% NACL 250ML 240 ML IV PRN ×2 (09:38→16:32)
[2023-02-03] MEDS: CISATRACURIUM BESYLATE 100 MG in 0.9%NACL 100ML 100 ML IV SCH (09:38)
[2023-02-03] MEDS: PROPOFOL 1000 MG/100 ML IV PRN (09:52)
[2023-02-03] MEDS ORDERED: HEPARIN 25,000 UNITS/250ML D5W 250 ML IV SCH (15:00)
[2023-02-03] MEDS ORDERED: HEPARIN 5,000 UNIT VIAL SQ PRN (15:00)
[2023-02-03 15:49] LABS: BASOPHILS % (AUTO) 0.2 % (0.0-5.0); EOSINOPHILS % (AUTO) 0.6 % (0.0-8.0); HEMATOCRIT 30.3 % (42-54); MEAN CORPUSCULAR HEMOGLOBIN 33.2 pg (27.0-33.0); MEAN CORPUSCULAR HGB CONC 29.7 g/dL (32.0-36.0); MEAN CORPUSCULAR VOLUME 111.8 fL (79-99); MONOCYTES % (AUTO) 3.9 % (3.0-13.0); NEUTROPHILS % (AUTO) 81.4 % (40.0-77.0); NUCLEATED RED BLOOD CELLS 2.4 % (0.0-0.19); PLATELET COUNT (AUTO) 159 K/uL (130-400); RED BLOOD CELL COUNT(AUTO) 2.71 MIL/uL (4.50-6.20); RED CELL DISTRIBUTION WIDTH 13.7 % (11.0-15.5); WHITE BLOOD COUNT (AUTO) 24.2 K/uL (4.8-10.8)
[2023-02-03] MEDS ORDERED: NOREPINEPHRIN 4MG/NS 250ML 250 ML IV SCH (17:30)
[2023-02-03 17:32] LABS: ABG BASE EXCESS -5.3 mmol/L (-2.0-3.0); ABG HCO3 20.3 mmol/L (21.0-28.0); ABG PCO2 40 mmHg (35-48)
[2023-02-03] MEDS ORDERED: SODIUM BICARB 50MEQ 50ML VIAL IV ONE (18:00)
[2023-02-03] MEDS ORDERED: FLUCONAZOLE 400 MG/NS 200 ML 200 ML IV SCH (18:00)
[2023-02-03] MEDS ORDERED: NOREPINEPHRINE 16MG/NS 250ML 250 ML IV SCH (18:00)
[2023-02-03] MEDS: ATORVASTATIN 40 MG TABLET PO SCH (20:06)
[2023-02-03] MEDS: ARTIFICIAL TEARS 3.5 GM OINTMENT OS SCH (20:06)
[2023-02-03] MEDS ORDERED: EPINEPHRINE 1MG/10ML(1:10,000) 0.1 MG/ML SYG ONE (21:24)
== END 2023-02-03 22:33 | DRG 870 ==
LOC: EDH 19:31 → EDHIP 21:30 → 2CH 01-16 02:00 → 2AH 01-28 17:27 → 2BH 02-01 08:05
PROVIDERS: ADMIT Internal Medicine; ATTEND Internal Medicine
PROC: 5A1955Z Respiratory Ventilation, Greater than 96 Consecutive Hours (ICD-10-PCS; principal; 2023-01-15)
PROC: 0BH17EZ Insertion of Endotracheal Airway into Trachea, Via Natural or Artificial Opening (ICD-10-PCS; 2023-01-15)
PROC: XW033E5 Introduction of Remdesivir Anti-infective into Peripheral Vein, Percutaneous Approach, New Technology Group 5 (ICD-10-PCS; 2023-01-15)
PROC: 5A09357 Assistance with Respiratory Ventilation, Less than 24 Consecutive Hours, Continuous Positive Airway Pressure (ICD-10-PCS; 2023-01-25)
PROC: 5A09357 Assistance with Respiratory Ventilation, Less than 24 Consecutive Hours, Continuous Positive Airway Pressure (ICD-10-PCS; 2023-01-26)
PROC: 5A09357 Assistance with Respiratory Ventilation, Less than 24 Consecutive Hours, Continuous Positive Airway Pressure (ICD-10-PCS; 2023-01-27)
PROC: 5A09357 Assistance with Respiratory Ventilation, Less than 24 Consecutive Hours, Continuous Positive Airway Pressure (ICD-10-PCS; 2023-01-28)
PROC: 5A09357 Assistance with Respiratory Ventilation, Less than 24 Consecutive Hours, Continuous Positive Airway Pressure (ICD-10-PCS; 2023-01-29)
PROC: 5A09357 Assistance with Respiratory Ventilation, Less than 24 Consecutive Hours, Continuous Positive Airway Pressure (ICD-10-PCS; 2023-01-30)
PROC: 5A09357 Assistance with Respiratory Ventilation, Less than 24 Consecutive Hours, Continuous Positive Airway Pressure (ICD-10-PCS; 2023-01-31)
PROC: 0BH17EZ Insertion of Endotracheal Airway into Trachea, Via Natural or Artificial Opening (ICD-10-PCS; 2023-02-01)
PROC: 5A1945Z Respiratory Ventilation, 24-96 Consecutive Hours (ICD-10-PCS; 2023-02-01)
DX: A41.89 Other specified sepsis (principal); I21.A1 Myocardial infarction type 2; U07.1 COVID-19; J12.82 Pneumonia due to coronavirus disease 2019; I50.43 Acute on chronic combined systolic (congestive) and diastolic (congestive) heart failure; J15.6 Pneumonia due to other Gram-negative bacteria; G93.41 Metabolic encephalopathy; J14 Pneumonia due to Hemophilus influenzae; J96.21 Acute and chronic respiratory failure with hypoxia; J96.22 Acute and chronic respiratory failure with hypercapnia; K72.00 Acute and subacute hepatic failure without coma; R65.21 Severe sepsis with septic shock; E87.1 Hypo-osmolality and hyponatremia; N17.9 Acute kidney failure, unspecified; M62.82 Rhabdomyolysis; E87.29 Other acidosis; J44.0 Chronic obstructive pulmonary disease with (acute) lower respiratory infection; E87.0 Hyperosmolality and hypernatremia; D68.8 Other specified coagulation defects; I47.21 Torsades de pointes; I13.0 Hypertensive heart and chronic kidney disease with heart failure and stage 1 through stage 4 chronic kidney disease, or unspecified chronic kidney disease; I45.2 Bifascicular block; J44.1 Chronic obstructive pulmonary disease with (acute) exacerbation; J98.11 Atelectasis; D69.6 Thrombocytopenia, unspecified; E11.22 Type 2 diabetes mellitus with diabetic chronic kidney disease; E66.01 Morbid (severe) obesity due to excess calories; E87.6 Hypokalemia; F17.200 Nicotine dependence, unspecified, uncomplicated; F19.90 Other psychoactive substance use, unspecified, uncomplicated; I25.10 Atherosclerotic heart disease of native coronary artery without angina pectoris; I25.5 Ischemic cardiomyopathy; N18.9 Chronic kidney disease, unspecified; R13.10 Dysphagia, unspecified; Z66 Do not resuscitate; Z74.01 Bed confinement status; Z86.74 Personal history of sudden cardiac arrest; Z68.35 Body mass index [BMI] 35.0-35.9, adult
CPT/HCPCS: 31500; 36415; 36600; 71045; 71250; 71270; 80048; 80053; 80202; 80305; 81001; 82140; 82330; 82435; 82550; 82728; 82803; 82947; 82948; 83605; 83615; 83735; 83874; 83880; 84100; 84132; 84145; 84295; 84484; 85018; 85025; 85027; 85378; 85610; 85730; 86140; 86738; 87040; 87071; 87077; 87088; 87186; 87205; 87449; 87635; 87804; 92610; 92950; 93005; 93306; 93356; 93970; 94002; 94003; 94640; 94660; 94664; 94667; 94668; 99291; 99292; C1751; C1894; G0378; J0171; J0330; J0456; J1100; J1265; J1450; J1644; J1650; J1720; J1815; J1940; J2020; J2060; J2185; J2250; J2370; J2405; J2543; J2704; J2765; J2930; J3010; J3370; J3480; J3490; J7050; Q9967